=== PATIENT | male | born 1965 | race African-American/Black ===

== ENCOUNTER 2016-11-01 15:18 | Inpatient (IN) | payer SELFPAY ==
[2016-11-01] VITALS (18 sets, daily range): BP systolic 75–119; BP diastolic 34–104
[~2016-11-01] VITALS: Ht 182.9 cm; Wt 84.1 kg
[2016-11-01] MEDS ORDERED: ROCURONIUM BROMIDE 50 MG/5 ML IV ONE (15:21)
[2016-11-01] MEDS ORDERED: ETOMIDATE 2 MG/ML VIAL IV ONE (15:21)
[2016-11-01 15:51] LABS: BASOPHILS # (AUTO) 0.1 /CMM (0.0-0.2); BASOPHILS % (AUTO) 0.8 % (0.0-2.0); HEMATOCRIT 45 % (39-51); HEMOGLOBIN 14.9 g/dL (13.5-17.5); LYMPHOCYTES % (AUTO) 24.9 % (20.0-44.0); MEAN CORPUSCULAR HEMOGLOBIN 27 PG (26.0-33.0); MEAN CORPUSCULAR HGB CONC 33 g/dl (31.0-36.0); MEAN CORPUSCULAR VOLUME 81 fL (80-96); MONOCYTES # (AUTO) 1.1 /CMM (0.1-1.30); MONOCYTES % (AUTO) 9.4 % (2.0-12.0); NEUTROPHILS # (AUTO) 7.9 /CMM (1.8-8.9); NEUTROPHILS % (AUTO) 64.9 % (43.0-81.0); PLATELET COUNT (AUTO) 209 /CMM (150-450); RDW COEFFICIENT OF VARIATION 12.6 (11.5-15.0); RED BLOOD CELL COUNT(AUTO) 5.53 MIL/uL (4.5-6.0); WHITE BLOOD COUNT (AUTO) 12.1 K/uL (4.3-11.0)
[2016-11-01 16:00] LABS: CALCIUM, SERUM 9.6 mg/dL (8.5-10.1); CREATININE 5.3 mg/dL (0.6-1.3); POTASSIUM 4.1 mmol/L (3.5-5.1)
[2016-11-01 16:06] LABS: ALBUMIN 4.5 g/dL (3.4-5.0); BILIRUBIN,DIRECT 0.2 mg/dL (0.0-0.2); BILIRUBIN,TOTAL 1.1 mg/dL (0.2-1.0); SALICYLATE 0.2 mg/dL (2.8-20.0); TOTAL PROTEIN, SERUM 8.2 g/dL (6.4-8.2)
[2016-11-01] MEDS: LEVETIRACETAM (500MG) 500 MG in IV NS 0.9% 100 ML IV SCH (16:06)
[2016-11-01 16:10] LABS: INR 1.11 (0.87-1.13); PROTHROMBIN TIME 11.6 SECS (9.5-12.7)
--- NOTE | 2016-11-01 16:12 | NUR ---
PT CAN NOT STAY STILL FOR CT SCANS, DR. PUCKETT IS AWARE. ER WILL CALL WHEN READY.
[2016-11-01 16:23] LABS: TROPONIN I 0.531 ng/mL (0.00-0.056)
--- NOTE | 2016-11-01 16:23 | NUR ---
SUCCESSFUL RSI DONE BY DR. PUCKETT AT BS. RTS AT BS. MEDS GIVEN PER MD ORDER. ET TUBE SIZE 7.5 AT 22 LIP POSITIVE CO2 COLOR CHANGE. VSS. WILL MONITOR.
[2016-11-01] MEDS ORDERED: PROPOFOL 100 ML IV ONE (16:27)
[2016-11-01] MEDS ORDERED: ACETAMINOPHEN 650 MG/SUPP.RECT RC ONE ×2 (16:30→17:02)
[2016-11-01] MEDS ORDERED: IV NS 0.9% 1,000 ML BAG IV ONE (16:30)
--- NOTE | 2016-11-01 16:30 | NUR ---
RECEIVED VERBAL ORDER FROM DR. PUCKETT FOR PROPOFOL. ORDERS CARRIED OUT.
--- NOTE | 2016-11-01 16:30 | NUR ---
VENT SETTINGS- AC-24, TV-500, FI02%-40%, PEEP OF 5
[2016-11-01] MEDS ORDERED: VANCOMYCIN 1 GM in IV D5W 250 ML IV ONE (17:00)
[2016-11-01] MEDS ORDERED: CEFTRIAXONE 1 G in IV D5W 50 ML IV ONE (17:00)
--- NOTE | 2016-11-01 17:00 | NUR ---
PT TAKEN TO CT.
[2016-11-01] MEDS ORDERED: CEFTRIAXONE 1GM BAG (ER ONLY) 50 ML IV ONE (17:09)
[2016-11-01 17:30] LABS: APPEARANCE,URINE Clear (CLEAR); BILIRUBIN,URINE MODERATE (NEGATIVE); BLOOD, URINE Large Ery/uL (NEGATIVE); COLOR,URINE Yellow (YELLOW); KETONES,URINE 15 (NEGATIVE); LEUKOCYTE ESTERASE ,URINE Trace (NEGATIVE); NITRITE, URINE Negative (NEGATIVE); PROTEIN,URINE >=300 mg/dl (NEGATIVE); UGLUCOSE Negative (NEGATIVE); UROBILINOGEN,URINE 0.2 EU/dL (0.2)
[2016-11-01 17:30] LABS: THYROID STIMULATING HORMONE 1.093 uIU/mL (0.358-3.74)
[2016-11-01] MEDS ORDERED: ASPIRIN 300 MG/SUPP.RECT RC ONE (17:30)
[2016-11-01 17:46] LABS: ABG BASE EXCESS -13.4 mmol/L; ABG OXYGEN SATURATION 98.7 % (92.0-98.5); ABG PCO2 44.6 mmHg (35.0-45.0); ABG PH 7.147 (7.350-7.450); ABG PO2 398.1 mmHg (75.0-100.0); AaDO2 270.3 mmHg; COHb 0.3 % (0.5-1.5); MetHb 1.6 % (0.0-1.5); O2Hb 96.8 % (94.0-97.0); PEEP,BG 5 cm H2O; SITE, ABG Right Radial; VENT MODE, BG AC MODE; VT, ABG 500 mL
[2016-11-01] MEDS ORDERED: IV NS 0.9% 1,000 ML IV PRN ×2 (18:06→19:58)
[2016-11-01 18:09] LABS: CREATINE KINASE MB 44.6 ng/mL (0-3.6)
--- NOTE | 2016-11-01 18:18 | NUR ---
ICU 257
[2016-11-01] MEDS ORDERED: ONDANSETRON HCL/PF 4 MG/2 ML VIAL IVP PRN (18:30)
[2016-11-01] MEDS ORDERED: ZOLPIDEM TARTRATE 5 MG TABLET PO PRN (18:30)
[2016-11-01] MEDS ORDERED: Z GUARD REMEDY 2 OZ OINT TP PRN (18:30)
[2016-11-01] MEDS ORDERED: MAGNESIUM HYDROXIDE 30 ML UDC PO PRN (18:30)
[2016-11-01] MEDS ORDERED: HYDROCODONE/APAP 5/325MG 1 EACH TABLET PO PRN (18:30)
[2016-11-01] MEDS ORDERED: MORPHINE SULFATE INJ 2 MG/ML DISP.SYRIN IV PRN (18:30)
[2016-11-01] MEDS ORDERED: ACETAMINOPHEN 325 MG TABLET PO PRN (18:30)
[2016-11-01] MEDS ORDERED: MAG HYDROX/AL HYDROX/SIMETH 30 ML UDC PO PRN (18:30)
[2016-11-01] MEDS ORDERED: D5W IV ONE (18:30)
[2016-11-01] MEDS ORDERED: ACYCLOVIR IV ONE (18:30)
[2016-11-01] MEDS ORDERED: ACYCLOVIR IV 1 GM in IV D5W 250 ML IV ONE (18:34)
--- NOTE | 2016-11-01 18:50 | NUR ---
CALLED FOR REPORT NURSE IS BUSY.
[2016-11-01] MEDS ORDERED: FEE PK DOSING 1 MIN EA MC ONE (19:00)
[2016-11-01 19:21] LABS: RBC,URINE TOO NUMEROUS TO COUN /HPF (0-2)
[2016-11-01 19:22] LABS: BACTERIA,URINE Few /HPF (None Seen); MUCUS,URINE Few /LPF (None Seen); SQUAMOUS EPITHELIAL CELL,UR Rare /HPF (None Seen); URINE AMORPHOUS URATE Moderate /HPF (None Seen)
--- NOTE | 2016-11-01 19:24 | NUR ---
REPORT GIVEN TO MARION BALDERRAMA FOR ICU 257
--- NOTE | 2016-11-01 19:25 | NUR ---
DISTRICT MANAGER: RECEIVED ORALLY INTUBATED PT VIA GURNEY FROM ER WITH PRIMARY DX OF ACUTE RESPIRATORY FAILURE AND SECONDARY DX OF HEAT STROKE. EYES OPEN, UNABLE TO TRACK AND FOLLOW COMMANDS. CURRENTLY RUNNING ACYCLOVIR IV INFUSION AND ON DIPRIVAN AT 30MCG/KG/MIN. ST ON CITRIX ADMINISTRATOR WT HR IN THE 140s. TACHYPNEIC AND WT TEMP. OF 106.6 F. ETT 7.5CM @ 22CM AT THE LIP WT VENT SETTINGS: AC22, TV 500, FI02 40% AND PEEP 5. CONTINUOUS COOLING MEASURES. SAFETY PRECAUTION NOTED. WILL CONTINUE TO MONITOR.
--- NOTE | 2016-11-01 19:34 | NUR ---
TRANSPORTED PT TO ICU BED WITHRT WITHOUT INCIDENT
--- NOTE | 2016-11-01 19:34 | NUR ---
TRANSPORTED CSF FLUID TO LAB
[2016-11-01 19:55] LABS: CSF GLUCOSE 112 mg/dL (40-70); CSF PROTEIN 31.2 mg/dL (15-45)
--- NOTE | 2016-11-01 20:15 | NUR ---
WHEEL BRAIDER: DR. ANAYA CALLED AND ORDERED TO INCREASE ADMITTING FLUID ORDER TO 150ML/HR AND STRICT I&O. NOTED AND CARRIED OUT.
[2016-11-01] MEDS ORDERED: PROPOFOL 100 ML IV PRN ×2 (20:30→22:00)
[2016-11-01] MEDS ORDERED: ENOXAPARIN SODIUM 30 MG/0.3 ML DISP.SYRIN SQ SCH (21:00)
--- NOTE | 2016-11-01 21:45 | NUR ---
PT RCVD ON MECH VENT WITH NOTED SETTINGS AND ORALLY INTUBATED WITH 7.5 ETT SECURE AT 23 CM @ THE LIP LINE . SUCTION SMALL AMOUNT OF WHITE THIN SECRETIONS. VENT ALARM CHECKED AND AUDIBLE . VENT PLUGGED INTO RED OUTLET AMBU BAG AT BEDSIDE. WILL CONTINUE TO MONITOR
[2016-11-01] MEDS: PIPERACILLIN /TAZOBACTAM 2.25 G in IV D5W 50 ML IV SCH (21:58)
[2016-11-01] MEDS ORDERED: HEPARIN INFUSION/D5W 500 ML IV PRN (22:00)
[2016-11-01] MEDS ORDERED: HEPARIN INFUSION/D5W 500 ML IV ONE (22:35)
[2016-11-01 22:50] LABS: ABG BASE EXCESS -9.8 mmol/L; ABG OXYGEN SATURATION 96.6 % (92.0-98.5); ABG PCO2 25.8 mmHg (35.0-45.0); ABG PH 7.349 (7.350-7.450); AaDO2 118.9 mmHg; COHb 0.2 % (0.5-1.5); O2Hb 95.4 % (94.0-97.0); PEEP,BG 5 cm H2O; SITE, ABG Right Femoral; VENT MODE, BG VENT AC; VT, ABG 500 mL
--- NOTE | 2016-11-01 23:35 | NUR ---
SENIOR ENERGY MARKET COORDINATOR: TAKEN DOWN TO CT FOR CT OF HEAD WTO CONTRAST AFTER DR. ROGERS SAW AND EXAMINED PT. DNP ALSO PLACED RT. FEMORAL A. LINE AND TOLERATED PROCEDURE FAIRLY.
[2016-11-01] MEDS ORDERED: HEPARIN SODIUM, PORCINE 5000 UNITS/1 ML VIAL ONE (23:59)
[2016-11-02] VITALS (82 sets, daily range): BP systolic 70–117; BP diastolic 24–74
[2016-11-02] MEDS ORDERED: HEPARIN SODIUM, PORCINE 5000 UNITS/1 ML VIAL IV ONE
[2016-11-02] MEDS: BLOOD SUGAR DIAGNOSTIC 1 EACH STRIP IN SCH ×5 (00:27→23:47)
[2016-11-02] MEDS: DEXTROSE 50%-WATER 50 ML DISP.SYRIN IV PRN ×2 (00:28→05:27)
--- NOTE | 2016-11-02 00:28 | NUR ---
WOOD TURNING LATHE OPERATOR: DR. ROGERS CALLED BACK AND SAID HE READ CT SCAN HIMSELF AND SAID TO DC HEPARIN AT THIS TIME.
--- NOTE | 2016-11-02 01:00 | NUR ---
STREET COMMISSIONER: STOPPED DIPRIVAN AT THIS TIME. PT IS OBTUNDED AND NOT MOVING. WILL HOLD RESTRAINTS AT THIS TIME.
--- NOTE | 2016-11-02 01:10 | NUR ---
GOLD BURNISHER: BLOOD SUGAR RECHECKED AFTER GIVEN D50 WT RESULT OF 70. PAGED DR. ROGERS IF WANT TO CHANGE IVF. TEMP= 100.5. PULSE OXIMETER NOTED WT INACCURATE TRACKING (AEB INCONSISTENT HR BETWEEN PULSE OX AND EKG LEAD HR) D/T CONTINUOUS COOLING MEASURES.
[2016-11-02] MEDS: IV D5/ 0.9% NACL 1,000 ML IV PRN ×2 (01:29→10:29)
--- NOTE | 2016-11-02 01:30 | NUR ---
KEY SANDER: DR. ROGERS MADE AWARE OF TROPONIN NOW AT 106.709 FROM 87.037. ALSO TOLD HIM NO URINE OUTPUT. ALSO RELAYED GLUCOSE=70 AFTER GIVEN D50. DNP WT ORDERS TO CHANGE IVF TO D5NS AT 150ML/HR AND SAID TO RESTART HEPARIN DRIP AND DC LOVENOX (AFTER HE CONFIRMED WT RADIOLOGIST THAT PT HAS NO BLEED FROM CT SCAN).
[2016-11-02] MEDS ORDERED: HEPARIN INFUSION/D5W 500 ML IV PRN (02:00)
--- NOTE | 2016-11-02 02:01 | NUR ---
SERVICE CENTER MANAGER: ONGOING HEPARIN 1150 U/HR, PT NOTED BLEEDING ON PICC LINE. PRESSURE DRESSING CHANGED. OBTAINED PTT ORDER TO ADD FOR 2300 LAB DRAW. TEMP NOW AT 99.0 (RECTAL).
[2016-11-02] MEDS ORDERED: LEVETIRACETAM (500MG) 500 MG/5 ML VIAL IV ONE (04:30)
[2016-11-02] MEDS: LEVETIRACETAM (500MG) 500 MG in IV NS 0.9% 100 ML IV SCH ×2 (04:36→16:54)
--- NOTE | 2016-11-02 04:45 | NUR ---
SOCIAL MEDIA STRATEGIST: FIRST UNIT OF FFP TRANSFUSED WT NO ADVERSE REACTIONS. WILL TRANSFUSE 2 OF 4. STILL OBTUNDED AND STILL OFF DIPRIVAN. WITHDRAWS TO PAINFUL STIMULI.
[2016-11-02 05:04] LABS: ALBUMIN 2.8 g/dL (3.4-5.0); BILIRUBIN,TOTAL 1.8 mg/dL (0.2-1.0); CALCIUM, SERUM 7.9 mg/dL (8.5-10.1); MAGNESIUM 1.3 mg/dL (1.8-2.4); POTASSIUM 3.7 mmol/L (3.5-5.1); TOTAL PROTEIN, SERUM 5.8 g/dL (6.4-8.2)
[2016-11-02 05:07] LABS: THYROID STIMULATING HORMONE 2.362 uIU/mL (0.358-3.74)
[2016-11-02 05:10] LABS: BASOPHILS % (AUTO) 0.1 % (0.0-2.0); EOSINOPHILS % (AUTO) 0.2 % (0.0-6.0); HEMATOCRIT 39 % (39-51); HEMOGLOBIN 13.7 g/dL (13.5-17.5); LYMPHOCYTES # (AUTO) 1.5 /CMM (0.8-4.8); LYMPHOCYTES % (AUTO) 7.6 % (20.0-44.0); MEAN CORPUSCULAR HEMOGLOBIN 27 PG (26.0-33.0); MEAN CORPUSCULAR HGB CONC 35 g/dl (31.0-36.0); MEAN CORPUSCULAR VOLUME 79 fL (80-96); MONOCYTES # (AUTO) 1.9 /CMM (0.1-1.30); MONOCYTES % (AUTO) 9.8 % (2.0-12.0); NEUTROPHILS # (AUTO) 16.3 /CMM (1.8-8.9); NEUTROPHILS % (AUTO) 82.3 % (43.0-81.0); RDW COEFFICIENT OF VARIATION 14.2 (11.5-15.0); RED BLOOD CELL COUNT(AUTO) 5.02 MIL/uL (4.5-6.0); WHITE BLOOD COUNT (AUTO) 19.8 K/uL (4.3-11.0)
[2016-11-02 05:12] LABS: PLATELET COUNT (AUTO) 48 /CMM (150-450)
[2016-11-02] MEDS: PIPERACILLIN /TAZOBACTAM 2.25 G in IV D5W 50 ML IV SCH ×3 (05:17→21:46)
[2016-11-02 05:32] LABS: CREATININE 7.8 mg/dL (0.6-1.3); PHOSPHORUS 0.9 mg/dL (2.5-4.9)
[2016-11-02 05:44] LABS: CREATINE KINASE MB 149.6 ng/mL (0-3.6)
[2016-11-02 05:55] LABS: BAND % (MANUAL) 28 % (0.0-5.0); EOSINOPHILS % (MANUAL) 1 % (0-4); LYMPHOCYTES % (MANUAL) 6 % (16-48); METAMYELOCYTES % 3 % (0-0); MYELOCYTES % 2 % (0-0); NEUTROPHILS % (MANUAL) 51 (42-76); PROMYELOCYTES % 4 % (0-0); REACTIVE LYMPHOCYTES 5 % (0-0)
[2016-11-02] MEDS ORDERED: Magnesium 1GM/D5W 100ML PREMIX 100 ML IV ONE (05:58)
[2016-11-02] MEDS ORDERED: NEUTRA PHOS 1 POWD.PACKET ONE (05:59)
[2016-11-02] MEDS ORDERED: NEUTRA PHOS 1 POWD.PACKET GT ONE (06:00)
[2016-11-02] MEDS ORDERED: GLUCAGON,HUMAN RECOMBINANT 1 MG/VIAL VIAL IV ONE (06:00)
[2016-11-02] MEDS ORDERED: GLUCAGON,HUMAN RECOMBINANT 1 MG/VIAL VIAL ONE (06:01)
[2016-11-02] MEDS ORDERED: HYDROCORTISONE SOD SUCCINATE 100 MG/2 ML VIAL ONE (06:03)
[2016-11-02] MEDS: HYDROCORTISONE SOD SUCCINATE 100 MG/2 ML VIAL IV SCH ×4 (06:06→16:38)
[2016-11-02] MEDS: Magnesium 1GM/D5W 100ML PREMIX 100 ML IV SCH ×4 (06:07→10:24)
[2016-11-02 06:19] LABS: MONOCYTES % (MANUAL) 0 % (0-11.0)
--- NOTE | 2016-11-02 07:30 | NUR ---
DOOR FRAME BUILDER- Received pt non-verbal, non-responsive, does not track or follow commands. Reflexes absent. Pt orally intubated, 7.5, 22@ the lip. Respirations labored & tachypneic, saturating 100%. Bedside monitor reveals Sinus Tachycardia, HR= 103. Right nare NGT present and clamped. Antonio catheter draining to gravity imelda urine. Low urine output noted. MARITZA picc line running D5NS @ 150 ml/hr. Heparin gtt stopped as cancelled by Dr. Dillon. Safety measures taken: bed locked and in low position, side rails up x2, bed alarm on, will continue to monitor.
--- NOTE | 2016-11-02 07:45 | NUR ---
FENCE BUILDER- Pt noted with bleeding from PICC line and mouth. Dressing changed from PICC line. Pt suctioned orally. Will continue to monitor.
[2016-11-02] MEDS ORDERED: Sodium Phosphate 15 MMOL in IV D5W 250 ML IV ONE ×2 (08:00→13:00)
[2016-11-02] MEDS ORDERED: IV NS 0.9% 500 ML IV PRN (08:00)
[2016-11-02] MEDS: PANTOPRAZOLE 40 MG VIAL IV SCH (08:28)
--- NOTE | 2016-11-02 08:35 | NUR ---
FORESTRY PROFESSOR- Dr. Mike at bedside. Updated md on pt's condition. Md aware pt bleeding from PICC line & mouth. Last FFP has just been completed. Will administer 2 units of Platelets. Obtained order for CBC q6h and Levophed prn. Orders placed. Will continue to monitor.
[2016-11-02] MEDS ORDERED: ENOXAPARIN SODIUM 30 MG/0.3 ML DISP.SYRIN SQ SCH (09:00)
--- NOTE | 2016-11-02 09:00 | NUR ---
COUNTY [place] CITY AUDITOR- Solu-Medrol IV non-administered. Given by previous nurse earlier at 0600. Next dose due at 1300. Will continue to monitor.
[2016-11-02 09:27] LABS: PEEP,BG 5 cm H2O; SITE, ABG A-Line; VENT MODE, BG AC / TOTAL RATE 48; VT, ABG 500 mL
[2016-11-02 09:28] LABS: ABG BASE EXCESS -10.9 mmol/L; ABG OXYGEN SATURATION 97.2 % (92.0-98.5); ABG PCO2 21.3 mmHg (35.0-45.0); ABG PH 7.383 (7.350-7.450); ABG PO2 171.7 mmHg (75.0-100.0); COHb 0.1 % (0.5-1.5); MetHb 1.4 % (0.0-1.5); O2Hb 95.7 % (94.0-97.0)
--- NOTE | 2016-11-02 09:30 | NUR ---
HARD ROCK DRILL OPERATOR- ABGs resulted and given to Dr. Pak. TV increased to 550 by RT. 1100- Fio2 decreased to 30% by RT. Will continue to monitor.
--- NOTE | 2016-11-02 10:00 | NUR ---
AUTOMOTIVE COLLISION REPAIR INSTRUCTOR- Pt had bowel movement. While cleaning pt with assistance from Job RN, pt noted with rectal bleeding. Platelet transfusion still ongoing. Will continue to monitor.
[2016-11-02] MEDS ORDERED: NOREPINEPHRINE 16 MG in IV D5W 500 ML IV PRN (11:00)
--- NOTE | 2016-11-02 11:26 | NUR ---
ICU CRN Jimenez was able to locate pt's cellphone and retrieve messages. A message was sent to pt. from phone number . SW contacted to inquire about the patient and if they knew him. YARELI described patient to Orquidea Lopez who informed SW that pt's name is Alfonso Andrade and he is Alfonso's cousin. YARELI informed Orquidea and his Harmony that pt. is currently in ICU and gave them the nursing station contact number and address to [facility]. YARELI inquired about for pt., however Harmony was unable to provide SW with .
[2016-11-02] MEDS: MORPHINE SULFATE INJ 4 MG/ML DISP.SYRIN IV PRN (12:41)
[2016-11-02 12:44] LABS: HEMATOCRIT 23 % (39-51); HEMOGLOBIN 8.1 g/dL (13.5-17.5); LYMPHOCYTES # (AUTO) 0.5 /CMM (0.8-4.8); MEAN CORPUSCULAR HEMOGLOBIN 28 PG (26.0-33.0); MEAN CORPUSCULAR HGB CONC 36 g/dl (31.0-36.0); MEAN CORPUSCULAR VOLUME 78 fL (80-96); MONOCYTES # (AUTO) 1.6 /CMM (0.1-1.30); MONOCYTES % (AUTO) 9.4 % (2.0-12.0); NEUTROPHILS # (AUTO) 14.9 /CMM (1.8-8.9); NEUTROPHILS % (AUTO) 87.6 % (43.0-81.0); PLATELET COUNT (AUTO) 64 /CMM (150-450); RDW COEFFICIENT OF VARIATION 14.3 (11.5-15.0); RED BLOOD CELL COUNT(AUTO) 2.91 MIL/uL (4.5-6.0)
[2016-11-02] MEDS ORDERED: Sodium Bicarbonate 100 MEQ in IV D5/0.45 NACL 1,000 ML IV PRN (13:00)
[2016-11-02 13:17] LABS: BAND % (MANUAL) 19 % (0.0-5.0); LYMPHOCYTES % (MANUAL) 3 % (16-48); MONOCYTES % (MANUAL) 9 % (0-11.0); NEUTROPHILS % (MANUAL) 69 (42-76)
--- NOTE | 2016-11-02 13:45 | NUR ---
FLEXOGRAPHIC PRESS SET UP OPERATOR- Dr. Mike made of the following lab results: Fibrinogen 75 and Procalcitonin 18.29. H&H dropped to 8.1/23. Also made aware pt's temperature slowly increasing. Currently temp is 99.9. No new orders obtained for lab results. However obtained Tylenol 650 mg rectal suppository q6h prn. Orders placed. Will continue to monitor.
[2016-11-02] MEDS: IV NS 0.9% 250 ML IV PRN ×2 (13:53→20:09)
[2016-11-02] MEDS ORDERED: ACETAMINOPHEN 650 MG/SUPP.RECT RC PRN (14:00)
[2016-11-02] MEDS: Sodium Bicarbonate 50 MEQ in IV D5/0.45 NACL 1,000 ML IV PRN (15:15)
--- NOTE | 2016-11-02 17:00 | NUR ---
RT NOTE: Received patient orally intubated with 7.5 ETT secured at 23 cm inner lipline on mechanical vent. ABG done and reported to Dr. Pak with vent changes ordered. Changes made and charted. Alarms verified and audible. Suctioned and lavaged large amount of bright red blood initially then small-moderate amount of thick dark red and secretions. Bilateral BS noted. Vent plugged into red outlet. Ambu bag at [facility].
[2016-11-02] MEDS: INSULIN REGULAR, HUMAN 100 UNIT/ML 3 ML VIAL SQ PRN ×2 (17:07→23:49)
--- NOTE | 2016-11-02 17:57 | NUR ---
ASSET PROTECTION ASSISTANT- Called [facility] and states they received order for 2 units of Cryo Precipitate (5 units each). special procedure tech states they have to order cryo precipitate from [place] and it will take approximately 4 hours. Will endorse to slot shift manager nurse. Will continue to monitor.
[2016-11-02 17:59] LABS: BASOPHILS % (AUTO) 0.1 % (0.0-2.0); HEMATOCRIT 23 % (39-51); HEMOGLOBIN 7.9 g/dL (13.5-17.5); LYMPHOCYTES # (AUTO) 0.7 /CMM (0.8-4.8); LYMPHOCYTES % (AUTO) 3.6 % (20.0-44.0); MEAN CORPUSCULAR HEMOGLOBIN 27 PG (26.0-33.0); MEAN CORPUSCULAR HGB CONC 35 g/dl (31.0-36.0); MEAN CORPUSCULAR VOLUME 78 fL (80-96); MONOCYTES # (AUTO) 0.8 /CMM (0.1-1.30); MONOCYTES % (AUTO) 4.3 % (2.0-12.0); PLATELET COUNT (AUTO) 52 /CMM (150-450); RDW COEFFICIENT OF VARIATION 14.3 (11.5-15.0); RED BLOOD CELL COUNT(AUTO) 2.89 MIL/uL (4.5-6.0); WHITE BLOOD COUNT (AUTO) 18.5 K/uL (4.3-11.0)
[2016-11-02] MEDS ORDERED: VANCOMYCIN 500 MG in IV D5W 100 ML IV SCH (18:00)
[2016-11-02 18:02] LABS: APPEARANCE,URINE CLOUDY (CLEAR); BILIRUBIN,URINE 1+ (NEGATIVE); BLOOD, URINE 3+ Ery/uL (NEGATIVE); COLOR,URINE DARK YELLO (YELLOW); KETONES,URINE TRACE (NEGATIVE); LEUKOCYTE ESTERASE ,URINE TRACE (NEGATIVE); NITRITE, URINE NEGATIVE (NEGATIVE); PH,URINE 6.5 (5.0-8.0); PROTEIN,URINE 3+ mg/dl (NEGATIVE); UGLUCOSE NEGATIVE (NEGATIVE); UROBILINOGEN,URINE 0.2 EU/dL (0.2)
--- NOTE | 2016-11-02 18:35 | NUR ---
AIRCRAFT LANDING GEAR INSPECTOR- Informed Dr. Mike of 1800 CBC results. H&H= 7.9. Md made aware pt still actively bleeding from nose, mouth, PICC line & rectum. Obtained order for 1 unit PRBC and next H&H check will be at midnight. Order for 1 unit PRBC placed. Will endorse to overnight stocker nurse.
[2016-11-02 18:40] LABS: BAND % (MANUAL) 20 % (0.0-5.0); LYMPHOCYTES % (MANUAL) 8 % (16-48); METAMYELOCYTES % 1 % (0-0); MONOCYTES % (MANUAL) 3 % (0-11.0); MYELOCYTES % 1 % (0-0); NEUTROPHILS % (MANUAL) 67 (42-76)
[2016-11-02 18:46] LABS: BACTERIA,URINE Rare /HPF (None Seen); RBC,URINE 51-80 /HPF (0-2); SQUAMOUS EPITHELIAL CELL,UR Rare /HPF (None Seen)
[2016-11-02 18:59] LABS: CREATININE, URINE 234.1 MG/DL (30.0-125.0); URINE TOTAL PROTEIN 1528.5 mg/dL (0-11.9)
--- NOTE | 2016-11-02 19:30 | NUR ---
PRIME MINISTER: RECEIVED PT ORALLY INTUBATED AND TOLERATING VENT SETTINGS ORDERED. STILL COMATOSE. ON LEVOPHED AT 2MCG/MIN, NA BICARB AT 125ML/HR. NO ACTIVE BLEEDING ON MARITZA PICC AT THIS TIME BUT STILL ACTIVELY BLEEDING WHEN SUCTIONED VIA ETT AND ORALLY. AWAITING FROM BLOOD BANK TO TRANSFUSE 1 UNIT PRBC AND 10 UNITS OF (5 UNITS EACH BACK) CRYO.
[2016-11-02 19:54] LABS: EOSINOPHIL,URINE None Seen
--- NOTE | 2016-11-02 21:40 | NUR ---
MEASURING CLERK: 1 UNIT PRBC TRANSFUSED WT NO ADVERSE REACTIONS. CALLED BLOOD BANK AND SPOKE WT SOC TO FOLLOW-UP WT CRYO AND SAID THEY WILL CALL ONCE READY.
[2016-11-02] MEDS ORDERED: GELATIN SPONGE,ABSORBABLE 1 SPONGE SPONGE TP ONE (22:17)
--- NOTE | 2016-11-02 22:25 | NUR ---
LIAISON INSPECTION LABORATORY ASSISTANT: DR. ERAN ROGERS AT BEDSIDE TO PLACE EMERGENCY HD CATHETER. NOTED ACTIVE BLEEDING ON A. LINE SITE.
[2016-11-02] MEDS ORDERED: DESMOPRESSIN 20 MCG in IV NS 0.9% 50 ML IV ONE (23:00)
[2016-11-02] MEDS ORDERED: DESMOPRESSIN 4 MCG/ML AMPUL ONE (23:07)
[2016-11-03] VITALS (87 sets, daily range): BP systolic 90–118; BP diastolic 32–75
--- NOTE | 2016-11-03 01:05 | NUR ---
STRATEGIC PARTNERSHIP REPRESENTATIVE: 2ND BAG OF CRYOPRECIPITATE TRANSFUSED WITH NO ADVERSE REACTIONS.
[2016-11-03] MEDS: Sodium Bicarbonate 50 MEQ in IV D5/0.45 NACL 1,000 ML IV PRN ×3 (01:37→21:19)
[2016-11-03 01:45] LABS: HEMATOCRIT 24 % (39-51); HEMOGLOBIN 8.5 g/dL (13.5-17.5); LYMPHOCYTES % (AUTO) 4.8 % (20.0-44.0); MEAN CORPUSCULAR HEMOGLOBIN 28 PG (26.0-33.0); MEAN CORPUSCULAR HGB CONC 35 g/dl (31.0-36.0); MEAN CORPUSCULAR VOLUME 79 fL (80-96); MONOCYTES # (AUTO) 0.7 /CMM (0.1-1.30); MONOCYTES % (AUTO) 3.4 % (2.0-12.0); NEUTROPHILS # (AUTO) 18.8 /CMM (1.8-8.9); NEUTROPHILS % (AUTO) 91.8 % (43.0-81.0); RDW COEFFICIENT OF VARIATION 14.6 (11.5-15.0); RED BLOOD CELL COUNT(AUTO) 3.09 MIL/uL (4.5-6.0); WHITE BLOOD COUNT (AUTO) 20.5 K/uL (4.3-11.0)
[2016-11-03 01:57] LABS: PLATELET COUNT (AUTO) 35 /CMM (150-450)
[2016-11-03 02:09] LABS: BAND % (MANUAL) 8 % (0.0-5.0); LYMPHOCYTES % (MANUAL) 3 % (16-48); METAMYELOCYTES % 1 % (0-0); MONOCYTES % (MANUAL) 4 % (0-11.0); MYELOCYTES % 1 % (0-0); NEUTROPHILS % (MANUAL) 83 (42-76)
--- NOTE | 2016-11-03 02:15 | NUR ---
BORING MACHINE FEEDER: DR. ROGERS MADE AWARE OF PLT=35 FROM 52 WT ORDER FOR 2 UNITS OF PLATELET TRANSFUSION. PT STILL NOTED WT BLOOD STOOLS, NASAL AND ORAL BLEEDING. SOC OF BLOOD BANK MADE AWARE AND SAID IT WILL TAKE TIME TO ORDER IT AND WILL CALL US WHEN IT'S READY.
[2016-11-03] MEDS: LEVETIRACETAM (500MG) 500 MG in IV NS 0.9% 100 ML IV SCH ×2 (04:01→16:24)
[2016-11-03] MEDS: PIPERACILLIN /TAZOBACTAM 2.25 G in IV D5W 50 ML IV SCH ×3 (04:47→20:34)
[2016-11-03 05:22] LABS: ALBUMIN 2.3 g/dL (3.4-5.0); BILIRUBIN,TOTAL 6.2 mg/dL (0.2-1.0); CALCIUM, SERUM 7.1 mg/dL (8.5-10.1); MAGNESIUM 2.1 mg/dL (1.8-2.4); PHOSPHORUS 3.7 mg/dL (2.5-4.9); TOTAL PROTEIN, SERUM 4.7 g/dL (6.4-8.2)
[2016-11-03 05:25] LABS: PLATELET COUNT (AUTO) 32 /CMM (150-450)
[2016-11-03 05:26] LABS: INR 2.29 (0.87-1.13); PARTIAL THROMBOPLASTIN TIME 46 SEC (23-34); PROTHROMBIN TIME 25.8 SECS (9.5-12.7)
[2016-11-03 05:27] LABS: FIBRINOGEN ACTIVITY 161 Mg/dL (213-485)
[2016-11-03 05:39] LABS: CREATININE 9.1 mg/dL (0.6-1.3)
[2016-11-03 05:41] LABS: D-DIMER > 35.20 mg/L(FEU (0.17-0.50)
[2016-11-03 05:44] LABS: THYROID STIMULATING HORMONE 0.68 uIU/mL (0.358-3.74)
[2016-11-03 05:45] LABS: TROPONIN I 58.177 ng/mL (0.00-0.056)
[2016-11-03] MEDS: BLOOD SUGAR DIAGNOSTIC 1 EACH STRIP IN SCH ×4 (05:51→23:57)
[2016-11-03] MEDS: INSULIN REGULAR, HUMAN 100 UNIT/ML 3 ML VIAL SQ PRN ×4 (05:55→23:58)
[2016-11-03] MEDS ORDERED: VANCOMYCIN 500 MG in IV D5W 100 ML IV SCH (06:00)
[2016-11-03 06:18] LABS: CREATINE KINASE MB 182.3 ng/mL (0-3.6)
[2016-11-03 06:37] LABS: BASOPHILS % (AUTO) 0.1 % (0.0-2.0); HEMATOCRIT 22 % (39-51); HEMOGLOBIN 7.7 g/dL (13.5-17.5); LYMPHOCYTES # (AUTO) 0.8 /CMM (0.8-4.8); MEAN CORPUSCULAR HEMOGLOBIN 28 PG (26.0-33.0); MEAN CORPUSCULAR HGB CONC 35 g/dl (31.0-36.0); MEAN CORPUSCULAR VOLUME 79 fL (80-96); MONOCYTES # (AUTO) 0.4 /CMM (0.1-1.30); MONOCYTES % (AUTO) 2.3 % (2.0-12.0); NEUTROPHILS # (AUTO) 17.7 /CMM (1.8-8.9); NEUTROPHILS % (AUTO) 93.6 % (43.0-81.0); RDW COEFFICIENT OF VARIATION 14.5 (11.5-15.0); RED BLOOD CELL COUNT(AUTO) 2.79 MIL/uL (4.5-6.0); WHITE BLOOD COUNT (AUTO) 18.9 K/uL (4.3-11.0)
[2016-11-03 06:47] LABS: PLATELET COUNT (AUTO) 23 /CMM (150-450)
--- NOTE | 2016-11-03 07:00 | NUR ---
CHAR FILTER OPERATOR: ONGOING 1ST UNIT PLATELET TRANSFUSION. NO ADVERSE REACTIONS. STILL BLEEDING. WILL ENDORSED TO DAY SHIFT FOR CONTINUITY OF CARE.
--- NOTE | 2016-11-03 07:15 | NUR ---
RN INITIAL NOTES RECEIVED PT INTUBATED, ON MECH VENT WITH FF SETTINGS: AC24, TV550, DF7190%, PEEP+5. PT COMATOSE. NO RESPIRATORY DISTRESS NOTED. PT TACHYCARDIC AND TACHYPNEIC. NGT, LEFT NARE, IN PLACE. MARITZA PICC LINE, LAC AND RFA IV IN PLACE. ON IVF, TOLERATING WELL. RIGHT FEMORAL A LINE INTACT. LEFT FEMORAL HD CATH IN PLACE. DRESSING CLEAN AND DRY. FC IN PLACE. 1ST UNIT OF PLATELET TRANSFUSING. NO BT REACTION NOTED. WILL CLOSELY MONITOR. WILL MONTIOR FOR ACTIVE SIGNS OF BLEEDING. BLE ELEVATED. WILL MONITOR.
[2016-11-03 07:34] LABS: BAND % (MANUAL) 19 % (0.0-5.0); LYMPHOCYTES % (MANUAL) 6 % (16-48); METAMYELOCYTES % 1 % (0-0); MONOCYTES % (MANUAL) 4 % (0-11.0); NEUTROPHILS % (MANUAL) 70 (42-76)
[2016-11-03] MEDS: PANTOPRAZOLE 40 MG VIAL IV SCH (08:47)
[2016-11-03] MEDS: HYDROCORTISONE SOD SUCCINATE 100 MG/2 ML VIAL IV SCH ×3 (08:47→16:24)
[2016-11-03 09:07] LABS: ABG OXYGEN SATURATION 97.3 % (92.0-98.5); ABG PCO2 25.5 mmHg (35.0-45.0); ABG PH 7.428 (7.350-7.450); ABG PO2 142.7 mmHg (75.0-100.0); AaDO2 41.2 mmHg; COHb 0.3 % (0.5-1.5); MetHb 1.6 % (0.0-1.5); O2Hb 95.5 % (94.0-97.0); SITE, ABG Right Radial; VENT MODE, BG AC 24 550 30% +5
[2016-11-03 12:06] LABS: LYMPHOCYTES # (AUTO) 0.3 /CMM (0.8-4.8); LYMPHOCYTES % (AUTO) 1.7 % (20.0-44.0); MEAN CORPUSCULAR HEMOGLOBIN 28 PG (26.0-33.0); MEAN CORPUSCULAR HGB CONC 36 g/dl (31.0-36.0); MEAN CORPUSCULAR VOLUME 78 fL (80-96); MONOCYTES # (AUTO) 0.5 /CMM (0.1-1.30); MONOCYTES % (AUTO) 2.9 % (2.0-12.0); NEUTROPHILS # (AUTO) 17.4 /CMM (1.8-8.9); NEUTROPHILS % (AUTO) 95.4 % (43.0-81.0); PLATELET COUNT (AUTO) 156 /CMM (150-450); RDW COEFFICIENT OF VARIATION 14.1 (11.5-15.0); RED BLOOD CELL COUNT(AUTO) 2.37 MIL/uL (4.5-6.0); WHITE BLOOD COUNT (AUTO) 18.2 K/uL (4.3-11.0)
[2016-11-03 12:20] LABS: HEMATOCRIT 18 % (39-51); HEMOGLOBIN 6.6 g/dL (13.5-17.5)
--- NOTE | 2016-11-03 12:30 | NUR ---
RN NOTES RECEIVED CRITICAL HGB 6.6, HCT 18. STILL WITH ACTIVE BLEEDING NOTED. NO RESPIRATORY DISTRESS NOTED. NO SOB NOTED. GIVEN 1 UNIT OF PRBC AND 2 UNITS OF CRYO LAST NIGHT. 2 UNITS OG PLATELET GIVEN THIS AM. SEEN AND EXAMINED BY DR. RODRI MAYNARD. AWARE OF CURRENT LAB VALUES AND IMAGING STUDIES. PT FOR HD TODAY. NO ORDER PER DR. MAYNARD REGARDING H/H. CALLED DR. ANAYA, LEFT A MESSAGE. AWAITING CALL BACK. Addendum: 11/03/16 at 1248 by RICK RUCKER RN 1232 DR. ANAYA IN THE UNIT. AWARE OF CURRENT LAB VALUES AND IMAGING. H/H 6.6/18, PLATELET 156, FIBRINOGEN 151. MD ORDERED GIVE 1 UNIT OF PRBC. MAY GIVE WITH HD. WILL CLOSELY MONITOR. Addendum: 11/03/16 at 1250 by RICK RUCKER RN DR. ANAYA ALSO AWARE OF TROPONIN 58.177, TRENDING DOWN. CREA KINASE [address]338 AND CK-MB 182.3. DR. PIZARRO ON THE CASE. WILL MONITOR
--- NOTE | 2016-11-03 12:45 | NUR ---
RN NOTES DIALYSIS STARTED. NO RESPIRATORY DISTRESS NOTED. NO SOB NOTED. NO SIGNS OF PAIN NOTED. WILL MONITOR Addendum: 11/03/16 at 1416 by RICK RUCKER RN 1340 1 UNIT OF PRBC TRANSFUSING WITH HD. WILL CLOSELY MONITOR FOR REACTION. LILIA TOLERATING HD WELL.
[2016-11-03 13:21] LABS: BAND % (MANUAL) 17 % (0.0-5.0); LYMPHOCYTES % (MANUAL) 2 % (16-48); MONOCYTES % (MANUAL) 2 % (0-11.0); NEUTROPHILS % (MANUAL) 79 (42-76)
--- NOTE | 2016-11-03 14:53 | NUR ---
RN NOTES DIALYSIS ENDED. REMOVED 1500ML. TOLERATED WELL. NO RESPIRATORY DISTRESS NOTED. NO SOB NOTED. 1 UNIT OF PRBC GIVEN WITH HD. NO BT REACTION NOTED. WILL MONITOR.
[2016-11-03 18:15] LABS: HEMATOCRIT 24 % (39-51); HEMOGLOBIN 8.1 g/dL (13.5-17.5); LYMPHOCYTES # (AUTO) 0.2 /CMM (0.8-4.8); LYMPHOCYTES % (AUTO) 0.9 % (20.0-44.0); MEAN CORPUSCULAR HEMOGLOBIN 28 PG (26.0-33.0); MEAN CORPUSCULAR HGB CONC 35 g/dl (31.0-36.0); MEAN CORPUSCULAR VOLUME 81 fL (80-96); MONOCYTES # (AUTO) 0.4 /CMM (0.1-1.30); MONOCYTES % (AUTO) 2.4 % (2.0-12.0); NEUTROPHILS # (AUTO) 17.3 /CMM (1.8-8.9); NEUTROPHILS % (AUTO) 96.7 % (43.0-81.0); PLATELET COUNT (AUTO) 125 /CMM (150-450); RDW COEFFICIENT OF VARIATION 15.7 (11.5-15.0); RED BLOOD CELL COUNT(AUTO) 2.91 MIL/uL (4.5-6.0); WHITE BLOOD COUNT (AUTO) 17.9 K/uL (4.3-11.0)
[2016-11-03] MEDS ORDERED: PHYTONADIONE INJ 10 MG/1 ML AMPUL SQ ONE (18:30)
--- NOTE | 2016-11-03 18:34 | NUR ---
RN NOTES SEEN AND EXAMINED BY DR. PINO. AWARE OF CURRENT HGB 8.1, HCT 24, PLATELETS 125, PT 25.8, INR 2.29, PTT 46, FIBRINOGEN 161. PT GIVEN 2 UNITS OF PLATELETS AND 1 UNIT OF PRBC TODAY. MD ORDERED FFP 2 UNITS AND VIT K. NOTED AND CARRIED OUT.
--- NOTE | 2016-11-03 18:48 | NUR ---
RN CLOSING NOTES PT REMAINS INTUBATED, ON MECH VENT. NO RESPIRATORY DISTRESS NOTED. NO SIGNS OF PAIN NOTED. IV LINES IN PLACE. TOLERATING IVF WELL. RIGHT FEMORAL A LINE AND LEFT HD CATH IN PLACE. FC IN PLACE. KEPT CLEAN AND DRY. REPOSITIONED Q2. KEPT BLE ELEVATED. CLOSELY MONITORED FOR SIGNS OF ACTIVE BLEEDING. WILL ENDORSE FOR CONTINUITY OF CARE.
--- NOTE | 2016-11-03 20:00 | NUR ---
Received patient comatose in no acute distress.Intubated to vent on AC mode. Vent settings well tolerated sating 97%.Lung sounds with rhonchi.Suction small amount bloody secretions.Oral care done.Left nares NGT intact and clamped. Placement verified.NPO status.All iv's infusing via deb picc line.Right femoral A-line and Left femoral HD cath intact.FC in place no urine output noted at this time. Turned and repositioned.Continue monitoring.
[2016-11-03] MEDS: IV NS 0.9% 250 ML IV PRN (20:03)
--- NOTE | 2016-11-03 21:01 | NUR ---
Patient to receive 2 unit FFP 1st unit started.VS stable.
[2016-11-04] VITALS (62 sets, daily range): BP systolic 99–145; BP diastolic 55–96
[2016-11-04 00:51] LABS: HEMATOCRIT 22 % (39-51); HEMOGLOBIN 7.8 g/dL (13.5-17.5); LYMPHOCYTES # (AUTO) 0.3 /CMM (0.8-4.8); LYMPHOCYTES % (AUTO) 1.8 % (20.0-44.0); MEAN CORPUSCULAR HEMOGLOBIN 28 PG (26.0-33.0); MEAN CORPUSCULAR HGB CONC 35 g/dl (31.0-36.0); MEAN CORPUSCULAR VOLUME 80 fL (80-96); MONOCYTES # (AUTO) 0.5 /CMM (0.1-1.30); NEUTROPHILS # (AUTO) 15.4 /CMM (1.8-8.9); NEUTROPHILS % (AUTO) 95.2 % (43.0-81.0); PLATELET COUNT (AUTO) 98 /CMM (150-450); RDW COEFFICIENT OF VARIATION 15.6 (11.5-15.0); RED BLOOD CELL COUNT(AUTO) 2.76 MIL/uL (4.5-6.0); WHITE BLOOD COUNT (AUTO) 16.2 K/uL (4.3-11.0)
[2016-11-04 01:58] LABS: FIBRINOGEN ACTIVITY 142 Mg/dL (213-485); INR 2.75 (0.87-1.13); PARTIAL THROMBOPLASTIN TIME 40 SEC (23-34); PLATELET COUNT (AUTO) 98 /CMM (150-450); PROTHROMBIN TIME 31.4 SECS (9.5-12.7)
[2016-11-04 02:15] LABS: CREATINE KINASE MB 57.2 ng/mL (0-3.6)
[2016-11-04 02:24] LABS: D-DIMER > 35.20 mg/L(FEU (0.17-0.50)
[2016-11-04] MEDS: LEVETIRACETAM (500MG) 500 MG in IV NS 0.9% 100 ML IV SCH ×2 (04:00→16:42)
[2016-11-04 04:08] LABS: BAND % (MANUAL) 6 % (0.0-5.0); LYMPHOCYTES % (MANUAL) 4 % (16-48); MONOCYTES % (MANUAL) 4 % (0-11.0); NEUTROPHILS % (MANUAL) 86 (42-76)
[2016-11-04 04:47] LABS: HEMATOCRIT 21 % (39-51); HEMOGLOBIN 7.4 g/dL (13.5-17.5); LYMPHOCYTES # (AUTO) 0.2 /CMM (0.8-4.8); LYMPHOCYTES % (AUTO) 1.2 % (20.0-44.0); MEAN CORPUSCULAR HEMOGLOBIN 29 PG (26.0-33.0); MEAN CORPUSCULAR HGB CONC 36 g/dl (31.0-36.0); MEAN CORPUSCULAR VOLUME 80 fL (80-96); MONOCYTES # (AUTO) 0.5 /CMM (0.1-1.30); MONOCYTES % (AUTO) 3.2 % (2.0-12.0); NEUTROPHILS # (AUTO) 14.5 /CMM (1.8-8.9); NEUTROPHILS % (AUTO) 95.6 % (43.0-81.0); PLATELET COUNT (AUTO) 82 /CMM (150-450); RDW COEFFICIENT OF VARIATION 15.8 (11.5-15.0); RED BLOOD CELL COUNT(AUTO) 2.59 MIL/uL (4.5-6.0); WHITE BLOOD COUNT (AUTO) 15.2 K/uL (4.3-11.0)
[2016-11-04 05:04] LABS: CALCIUM, SERUM 6.9 mg/dL (8.5-10.1); POTASSIUM 4.5 mmol/L (3.5-5.1)
[2016-11-04] MEDS: PIPERACILLIN /TAZOBACTAM 2.25 G in IV D5W 50 ML IV SCH ×3 (05:11→21:03)
[2016-11-04 05:16] LABS: CREATININE 8.3 mg/dL (0.6-1.3)
[2016-11-04] MEDS ORDERED: VANCOMYCIN 500 MG in IV D5W 100 ML IV SCH ×2 (06:00→09:00)
[2016-11-04] MEDS: BLOOD SUGAR DIAGNOSTIC 1 EACH STRIP IN SCH ×3 (06:26→17:19)
[2016-11-04] MEDS: INSULIN REGULAR, HUMAN 100 UNIT/ML 3 ML VIAL SQ PRN (06:27)
[2016-11-04] MEDS ORDERED: IV NS 0.9% 500 ML IV ONE (06:30)
--- NOTE | 2016-11-04 07:34 | NUR ---
Patient received 2 units FFP and 1 unit PRBC without untoward reaction. Still to receive 1 unit PRBC.Report given to AM shift RN.Patient status unchanged.
[2016-11-04] MEDS: Sodium Bicarbonate 50 MEQ in IV D5/0.45 NACL 1,000 ML IV PRN (07:50)
--- NOTE | 2016-11-04 08:00 | NUR ---
ICU/RN: PT RECEIVED, GAG REFLEX PRESENT, OPENS EYES, UNABLE TO FOLLOW COMMANDS, NO FACIAL GRIMACING OR DISTRESS NOTED. FC DRAINING TO GRAVITY WITH MINIMAL TEA COLORED URINE OUTPUT. WILL CONT TO MONITOR PT.
[2016-11-04] MEDS: PANTOPRAZOLE 40 MG VIAL IV SCH (08:38)
[2016-11-04] MEDS: HYDROCORTISONE SOD SUCCINATE 100 MG/2 ML VIAL IV SCH ×3 (08:39→16:41)
--- NOTE | 2016-11-04 10:00 | NUR ---
ICU/RN: 2ND UNIT PRBC TRANSFUSED WITH HD; TOLERATED WELL. 2.5 LITERS OUT. REMAINS HEMODYNAMICALLY STABLE AND AFEBRILE. WILL CONT TO MONITOR PT.
--- NOTE | 2016-11-04 12:06 | NUR ---
ICU/RN: DR PINO UPDATED ON PT STATUS. 1200 FIBRINOGEN LEVEL PENDING; STANDING ORDERS OBTAINED TO TRANSFUSE 10 UNITS OF CRYOPRECIPITATE IF FIBRINOGEN <150
[2016-11-04 12:12] LABS: HEMATOCRIT 29 % (39-51); LYMPHOCYTES # (AUTO) 0.2 /CMM (0.8-4.8); MEAN CORPUSCULAR HEMOGLOBIN 29 PG (26.0-33.0); MEAN CORPUSCULAR HGB CONC 35 g/dl (31.0-36.0); MEAN CORPUSCULAR VOLUME 82 fL (80-96); MONOCYTES # (AUTO) 0.6 /CMM (0.1-1.30); MONOCYTES % (AUTO) 3.9 % (2.0-12.0); NEUTROPHILS # (AUTO) 15.3 /CMM (1.8-8.9); NEUTROPHILS % (AUTO) 95.1 % (43.0-81.0); PLATELET COUNT (AUTO) 64 /CMM (150-450); RDW COEFFICIENT OF VARIATION 16.3 (11.5-15.0); RED BLOOD CELL COUNT(AUTO) 3.46 MIL/uL (4.5-6.0); WHITE BLOOD COUNT (AUTO) 16.1 K/uL (4.3-11.0)
[2016-11-04 12:53] LABS: BAND % (MANUAL) 6 % (0.0-5.0); LYMPHOCYTES % (MANUAL) 2 % (16-48); MONOCYTES % (MANUAL) 4 % (0-11.0); NEUTROPHILS % (MANUAL) 88 (42-76)
--- NOTE | 2016-11-04 14:00 | NUR ---
ICU/RN: BED BATH AND WOUND CARE RENDERED, PT TOLERATED WELL. A-LINE DRESSING CHANGED, CALIBRATED AND ZEROED PER PROTOCOL.
[2016-11-04 15:09] LABS: PTH, INTACT 685 pg/mL (15-65)
--- NOTE | 2016-11-04 16:47 | NUR ---
ICU/RN: CALLED BLOOD BANK TO F/U CRYOPRECIPITATE, PER ED, CLS, AWAITING DELIVERY FROM [facility]. WILL CALL ONCE UNITS ARE AVAILABLE.
[2016-11-04] MEDS: DEXTROSE 50%-WATER 50 ML DISP.SYRIN IV PRN (17:24)
--- NOTE | 2016-11-04 19:15 | NUR ---
ICU/RN: PT IN BED, TOLERATING CURRENT VENT SETTINGS, REMAINS HEMODYNAMICALLY STABLE, CALLED BLOOD BANK TO F/U CRYOPRECIPITATE, PER CLS STILL WAITING FOR DELIVERY FROM [facility]. CARE ENDORSED TO PM RN FOR YORDY.
--- NOTE | 2016-11-04 20:00 | NUR ---
Received patient resting in acute distress.Tolerating vent settings.Oral care done and secretions suctioned.SR with LBBB.Hemodynamically stable.NPO and ngt clamped.FC in place no urine output at this time.Turned and repositioned.Continue monitoring.Still awaiting CRYO from BLOOD BANK.
[2016-11-04] MEDS: IV NS 0.9% 250 ML IV PRN (21:43)
--- NOTE | 2016-11-04 23:40 | NUR ---
Cryoprecipitate 10 units transfused without untoward reaction.VS stable.
[2016-11-05] VITALS (47 sets, daily range): BP systolic 99–157; BP diastolic 69–94
[2016-11-05] MEDS ORDERED: DEXTROSE 50%-WATER 50 ML DISP.SYRIN ONE (01:17)
--- NOTE | 2016-11-05 01:20 | NUR ---
Patient blood sugar 38.Repeated BS 41.DNP,Damon Barrett nofied with order.D50 1 AMP IV given.
[2016-11-05] MEDS ORDERED: DEXTROSE 50%-WATER 50 ML DISP.SYRIN IVP ONE ×2 (01:30→06:30)
[2016-11-05] MEDS: BLOOD SUGAR DIAGNOSTIC 1 EACH STRIP IN SCH ×4 (01:31→17:49)
[2016-11-05] MEDS: IV D5/ 0.9% NACL 1,000 ML IV PRN ×2 (02:26→16:10)
[2016-11-05] MEDS: LEVETIRACETAM (500MG) 500 MG in IV NS 0.9% 100 ML IV SCH ×2 (04:45→16:08)
[2016-11-05] MEDS: PIPERACILLIN /TAZOBACTAM 2.25 G in IV D5W 50 ML IV SCH ×3 (05:18→20:32)
[2016-11-05 05:24] LABS: CALCIUM, SERUM 7.1 mg/dL (8.5-10.1); POTASSIUM 5.2 mmol/L (3.5-5.1)
[2016-11-05] MEDS ORDERED: IV NS 0.9% 500 ML BAG IV ONE ×2 (05:30→06:30)
[2016-11-05 06:06] LABS: CREATININE 8.3 mg/dL (0.6-1.3)
--- NOTE | 2016-11-05 06:28 | NUR ---
Patient BS 59.D50 1 amp ivp given.Latest blood sugar 120.Patient in no acute distress. Right femoral A-line with bleeding.Dressing changed and pressure dressing applied.Continue monitoring.
[2016-11-05 06:37] LABS: CREATINE KINASE MB 13.1 ng/mL (0-3.6)
[2016-11-05 07:52] LABS: HEMATOCRIT 31 % (39-51); HEMOGLOBIN 10.6 g/dL (13.5-17.5); LYMPHOCYTES # (AUTO) 0.4 /CMM (0.8-4.8); LYMPHOCYTES % (AUTO) 2.1 % (20.0-44.0); MEAN CORPUSCULAR HEMOGLOBIN 29 PG (26.0-33.0); MEAN CORPUSCULAR HGB CONC 35 g/dl (31.0-36.0); MEAN CORPUSCULAR VOLUME 83 fL (80-96); MONOCYTES # (AUTO) 1.6 /CMM (0.1-1.30); MONOCYTES % (AUTO) 8.8 % (2.0-12.0); NEUTROPHILS # (AUTO) 16.1 /CMM (1.8-8.9); NEUTROPHILS % (AUTO) 89.1 % (43.0-81.0); PLATELET COUNT (AUTO) 59 /CMM (150-450); RDW COEFFICIENT OF VARIATION 16.5 (11.5-15.0); RED BLOOD CELL COUNT(AUTO) 3.68 MIL/uL (4.5-6.0); WHITE BLOOD COUNT (AUTO) 18.1 K/uL (4.3-11.0)
[2016-11-05] MEDS: HYDROCORTISONE SOD SUCCINATE 100 MG/2 ML VIAL IV SCH ×4 (08:09→16:08)
[2016-11-05] MEDS: PANTOPRAZOLE 40 MG VIAL IV SCH ×2 (08:09→08:10)
[2016-11-05 08:25] LABS: ABG BASE EXCESS -4.3 mmol/L; ABG OXYGEN SATURATION 97.4 % (92.0-98.5); ABG PCO2 27.4 mmHg (35.0-45.0); ABG PH 7.449 (7.350-7.450); ABG PO2 139.5 mmHg (75.0-100.0); AaDO2 42.2 mmHg; COHb 0.3 % (0.5-1.5); MetHb 0.8 % (0.0-1.5); O2Hb 96.3 % (94.0-97.0); SITE, ABG A-Line
[2016-11-05 09:48] LABS: MONOCYTES % (MANUAL) 11 % (0-11.0); NEUTROPHILS % (MANUAL) 89 (42-76)
[2016-11-05 10:22] LABS: LYMPHOCYTES % (MANUAL) 0 % (16-48)
[2016-11-05] MEDS ORDERED: VANCOMYCIN POST DIALYSIS 500MG IV PRN ×2 (11:30)
--- NOTE | 2016-11-05 13:00 | NUR ---
CAN PATCHER- HD completed, 2.5 L out. Pt tolerated well. Will continue to monitor.
[2016-11-05 18:45] LABS: HEMATOCRIT 30 % (39-51); HEMOGLOBIN 10.5 g/dL (13.5-17.5); LYMPHOCYTES # (AUTO) 0.2 /CMM (0.8-4.8); LYMPHOCYTES % (AUTO) 1.3 % (20.0-44.0); MEAN CORPUSCULAR HEMOGLOBIN 29 PG (26.0-33.0); MEAN CORPUSCULAR HGB CONC 35 g/dl (31.0-36.0); MEAN CORPUSCULAR VOLUME 84 fL (80-96); MONOCYTES # (AUTO) 2.3 /CMM (0.1-1.30); MONOCYTES % (AUTO) 13.1 % (2.0-12.0); NEUTROPHILS # (AUTO) 15.2 /CMM (1.8-8.9); NEUTROPHILS % (AUTO) 85.6 % (43.0-81.0); RDW COEFFICIENT OF VARIATION 16.6 (11.5-15.0); RED BLOOD CELL COUNT(AUTO) 3.61 MIL/uL (4.5-6.0); WHITE BLOOD COUNT (AUTO) 17.7 K/uL (4.3-11.0)
[2016-11-05 18:47] LABS: PLATELET COUNT (AUTO) 44 /CMM (150-450)
--- NOTE | 2016-11-05 20:00 | NUR ---
MOID MIDDLE SCHOOL TEACHER" RECEIVED PT FROM DAY SHIFT, PT IS INTUBATED ON VENT, TOLERATING CURRENT VENT SETTING. RIGHT FEMORAL ARTERIAL LINE OOZING WITH BLOOD, MD AWARE, PRESSURE DRESSING APPLIED, KEEP MONITORING. H/H STABLE CHECKING Q12H. LOW PLATELETS LEVEL 44, EPIC INTERFACE ANALYST DR PINO AWARE, ORDERS TO CHECK FIBRINOGEN LEVEL Q12H, IF ITS LESS THAN 150 GIVE 10 UNITS OF CRYO, AWAITING NUMBERS. TURN AND REPOSITIONED Q2H. HOB ELEVATED. RIGHT UPPER ARM PICC, INTACT INFUSING D5NS AT 75 ML/HR. RIGHT HAND#16 INTACT. LEFT FEMORAL HD CATH, DIALYZED TODAY 2.5 L OUT. V/S STABLE. RECTAL TMP 98.1. KEEP MONITORING...
[2016-11-05 20:36] LABS: BAND % (MANUAL) 1 % (0.0-5.0); LYMPHOCYTES % (MANUAL) 7 % (16-48); MONOCYTES % (MANUAL) 4 % (0-11.0); NEUTROPHILS % (MANUAL) 88 (42-76)
--- NOTE | 2016-11-05 20:42 | NUR ---
CIGARETTE TESTER: FIBRINOGEN LEVEL 141, 10 UNITS OF CRYOPRECIPITATE ORDERED PER DR PINO STANDING ORDERS. AWAITING TO BE READY.
--- NOTE | 2016-11-05 20:43 | NUR ---
FREEZING MACHINE OPERATOR: ARTERIAL LINE TUBING CHANGED PER UNIT POLICY.
[2016-11-06] VITALS (66 sets, daily range): BP systolic 106–168; BP diastolic 47–99
[2016-11-06] MEDS: BLOOD SUGAR DIAGNOSTIC 1 EACH STRIP IN SCH ×5 (00:13→23:54)
--- NOTE | 2016-11-06 02:39 | NUR ---
CREW BOSS: RIGHT FEMORAL ARTERIAL LINE SITE IS BLEEDING, OOZING WITH CLOTS, PRESSURE DRESSING APPLIED. UNABLE TO FIND SANDBAGS IN WHOLE HOSPITAL. KEEP MONITORING...
[2016-11-06] MEDS: LEVETIRACETAM (500MG) 500 MG in IV NS 0.9% 100 ML IV SCH (04:05)
[2016-11-06] MEDS: PIPERACILLIN /TAZOBACTAM 2.25 G in IV D5W 50 ML IV SCH ×3 (04:37→21:23)
[2016-11-06] MEDS ORDERED: IV 10% DEXTROSE 1,000 ML IV PRN (05:00)
[2016-11-06] MEDS ORDERED: Sodium Chloride 154 MEQ in IV 10% DEXTROSE 1,000 ML IV PRN (05:00)
--- NOTE | 2016-11-06 05:00 | NUR ---
JEWELRY POLISHER;' FINGERSTICK BLOOD SUGAR 56, MD ERAN ROGERS NOTIFIED, ORDERS TO START D10 AT 100 ML/HR, ORDERS FAXED TO NURSING ANALYTICS CONSULTANT, AWAITING .....
[2016-11-06 05:20] LABS: CALCIUM, SERUM 7.5 mg/dL (8.5-10.1); POTASSIUM 5.6 mmol/L (3.5-5.1)
[2016-11-06 05:29] LABS: HEMATOCRIT 27 % (39-51); HEMOGLOBIN 9.4 g/dL (13.5-17.5); LYMPHOCYTES # (AUTO) 0.4 /CMM (0.8-4.8); LYMPHOCYTES % (AUTO) 2.6 % (20.0-44.0); MEAN CORPUSCULAR HEMOGLOBIN 30 PG (26.0-33.0); MEAN CORPUSCULAR HGB CONC 35 g/dl (31.0-36.0); MEAN CORPUSCULAR VOLUME 85 fL (80-96); MONOCYTES # (AUTO) 2.8 /CMM (0.1-1.30); MONOCYTES % (AUTO) 17.9 % (2.0-12.0); NEUTROPHILS # (AUTO) 12.5 /CMM (1.8-8.9); NEUTROPHILS % (AUTO) 79.5 % (43.0-81.0); PLATELET COUNT (AUTO) 55 /CMM (150-450); RDW COEFFICIENT OF VARIATION 17.1 (11.5-15.0); RED BLOOD CELL COUNT(AUTO) 3.14 MIL/uL (4.5-6.0); WHITE BLOOD COUNT (AUTO) 15.7 K/uL (4.3-11.0)
[2016-11-06 05:42] LABS: CREATININE 7.6 mg/dL (0.6-1.3)
[2016-11-06 05:56] LABS: BAND % (MANUAL) 1 % (0.0-5.0); LYMPHOCYTES % (MANUAL) 6 % (16-48); MONOCYTES % (MANUAL) 10 % (0-11.0); NEUTROPHILS % (MANUAL) 83 (42-76)
[2016-11-06 05:59] LABS: CREATINE KINASE MB 5.9 ng/mL (0-3.6)
--- NOTE | 2016-11-06 07:53 | NUR ---
Received male intubated pt. Pt 7.5 ETT secure at 23cm @ the lip. Vent is plugged into a red outlet, alarms are set and audible, and BVM is at bedside. Addendum: 11/06/16 at 0755 by VITA DOMÍNGUEZ RT Amended: Links added.
[2016-11-06] MEDS: PANTOPRAZOLE 40 MG VIAL IV SCH (08:15)
[2016-11-06] MEDS: HYDROCORTISONE SOD SUCCINATE 100 MG/2 ML VIAL IV SCH ×3 (08:15→16:17)
--- NOTE | 2016-11-06 09:00 | NUR ---
ICU/RN: DR HÉCTOR AGUILLON; UPDATED ON PT STATUS; LAB AUTUMN KEVIN.
[2016-11-06 10:13] LABS: ABG BASE EXCESS -4.7 mmol/L; ABG OXYGEN SATURATION 96.6 % (92.0-98.5); ABG PCO2 29.1 mmHg (35.0-45.0); ABG PO2 118.7 mmHg (75.0-100.0); COHb 0.5 % (0.5-1.5); MetHb 1.4 % (0.0-1.5); O2Hb 94.8 % (94.0-97.0); PEEP,BG 5 cm H2O; SITE, ABG A-Line; VT, ABG 550 mL
[2016-11-06] MEDS: RENAL NOVASOURCE 1,000 ML BOTTLE GT PRN (10:56)
--- NOTE | 2016-11-06 13:47 | NUR ---
ICU/RN: NOTIFIED OF BLOOD GLUCOSE TREND, BLOOD GLUCOSE 156MG/DL; TOLERATING TUBE FEEDING. PER MD, OK TO DC IV D10 AND START ON ISS FOR TF.
[2016-11-06] MEDS ORDERED: INSULIN REGULAR, HUMAN 100 UNIT/ML 3 ML VIAL SQ PRN (14:00)
[2016-11-06] MEDS ORDERED: DEXTROSE 50%-WATER 50 ML DISP.SYRIN IV PRN (14:00)
--- NOTE | 2016-11-06 14:00 | NUR ---
ICU/RN: PT OFF HD EARLY; PER HD RN SBP DROPPED TO MID 80'S TO LOW 90'S, PT PRESENTLY TACHYCARDIC IN 120'S, RR 30'S. TOTAL OUTPUT OF 1000ML NOTED. WILL MONITOR VS CLOSELY.
--- NOTE | 2016-11-06 15:00 | NUR ---
ICU/RN: A-LINE DRESSING ASSESSED; BLEEDING AT SITE NOTED. SITE CARE RENDERED, APPLIED PRESSURE DRESSING TO AREA; HEMODYNAMIC MONITORING CALIBRATED, FLUSHED PER PROTOCOL. WILL CONT TO MONITOR PT
[2016-11-06] MEDS: LEVETIRACETAM SOL (5 ML) 100 MG/ML UDC GT SCH (16:17)
--- NOTE | 2016-11-06 17:10 | NUR ---
ICU/RN: DR ANAYA NOTIFIED OF BRIGHT RED STOOL X2 , LAST BLOOD GLUCOSE 101 MG/DL. MD ORDERED TO CHECK FOR OBS, MD TO CONSULT WITH GI. SENIOR IT ASSISTANT UPDATED.
--- NOTE | 2016-11-06 19:10 | NUR ---
ICU/RN: PT IN BED, EYES CLOSED, NO DISTRESS NOTED, AFEBRILE, BREATHING EVEN AND UNLABORED. R FEMORAL A-LINE DRESSING C/D/I. CARE ENDORSED TO PM RN FOR YORDY.
--- NOTE | 2016-11-06 19:52 | NUR ---
SOCIAL MEDIA ANALYST: RECEIVED PT , STILL INTUBATED ON VENT, REMAINS ON SAME VENT SETTING, ARTERIAL LINE STILL OOZING WITH BLOOD , REINFORCED PRESSURE DRESSING. MD AWARE. PT HAD BLOODY STOOL REPORTED BY DAY NURSE , FEEDING STOPPED, GI CONSULTED AWAITING. ACCU CHECK Q6H WITH SLIDING SCALE, D10 DC [address] ANAYA ORDERS TO GIVE D50% IF BLOOD SUGAR LESS THAN 60 REPORTED BY DAY NURSE, PT BEEN HAVING EPISODES OF LOW BLOOD SUGAR. KEEP MONITORING . V/S STABLE. ALL NEEDS ATTENDED.
[2016-11-06] MEDS ORDERED: ACETAMINOPHEN 650 MG/20.3 ML UDC NG PRN (22:30)
--- NOTE | 2016-11-06 22:46 | NUR ---
RT NOTE PT RECEIVED MECHANICALLY VENTILATED. 7.5 ETT 23 CM AT LIP. SETTINGS PRESCRIBED. ALARMS SET PER PROTOCOL AND AUDIBLE. VENT PLUGGED IN TO RED OUTLET. AMBU BAG AT BED SIDE. NO DISTRESS NOTED. WILL CONTINUE TO MONITOR. Addendum: 11/06/16 at 2248 by VALERIE KAUR RT Amended: Links added.
[2016-11-06] MEDS: MORPHINE SULFATE INJ 4 MG/ML DISP.SYRIN IV PRN (23:41)
[2016-11-06] MEDS: IV 10% DEXTROSE 1,000 ML IV PRN (23:55)
[2016-11-07] VITALS (111 sets, daily range): BP systolic 72–176; BP diastolic 26–89
[2016-11-07] MEDS ORDERED: Sodium Chloride 154 MEQ in IV 10% DEXTROSE 1,000 ML IV PRN ×2
--- NOTE | 2016-11-07 00:01 | NUR ---
RIGGING SUPERVISOR: PT HAVING EPISODES OF SHALLOW BREATHING, TACHYPNEIC RATE OF 35-42, MORPHINE 2 MG IV PRN GIVEN. FINGERSTICK BLOOD SUGAR 42, ERAN ROGERS AT BEDSIDE NOTIFIED, D50% IV GIVEN, RESTARTED D10 AT 60 ML/HR. KEEP MONITORING....
--- NOTE | 2016-11-07 03:33 | NUR ---
RAIL CAR LOADER; CALL RECEIVED FROM CARRIE BORDEN AT 0600, POSSIBLE NEEDS INTUBATION IF CO2 LEVEL NOT IMPROVED WITH BIPAP. KEEP MONITORING... 2ND ABG RESULTS RELAYED TO ERAN ROGERS EARLIER. Addendum: 11/07/16 at 0334 by ROSE VILLAFUERTE RN WRONG PT CHARTING.
[2016-11-07] MEDS ORDERED: IV NS 0.9% 500 ML BAG IV PRN (04:00)
[2016-11-07] MEDS: BLOOD SUGAR DIAGNOSTIC 1 EACH STRIP IN SCH ×4 (04:47→23:57)
[2016-11-07] MEDS: PIPERACILLIN /TAZOBACTAM 2.25 G in IV D5W 50 ML IV SCH ×3 (04:47→20:39)
[2016-11-07] MEDS: LEVETIRACETAM SOL (5 ML) 100 MG/ML UDC GT SCH ×2 (04:47→15:59)
[2016-11-07 05:12] LABS: BASOPHILS % (AUTO) 0.1 % (0.0-2.0); HEMOGLOBIN 7.1 g/dL (13.5-17.5); LYMPHOCYTES % (AUTO) 5.7 % (20.0-44.0); MEAN CORPUSCULAR HEMOGLOBIN 30 PG (26.0-33.0); MEAN CORPUSCULAR HGB CONC 35 g/dl (31.0-36.0); MEAN CORPUSCULAR VOLUME 85 fL (80-96); MONOCYTES # (AUTO) 4.6 /CMM (0.1-1.30); MONOCYTES % (AUTO) 26.6 % (2.0-12.0); NEUTROPHILS # (AUTO) 11.8 /CMM (1.8-8.9); NEUTROPHILS % (AUTO) 67.6 % (43.0-81.0); PLATELET COUNT (AUTO) 69 /CMM (150-450); RDW COEFFICIENT OF VARIATION 17.3 (11.5-15.0); RED BLOOD CELL COUNT(AUTO) 2.38 MIL/uL (4.5-6.0); WHITE BLOOD COUNT (AUTO) 17.5 K/uL (4.3-11.0)
[2016-11-07 05:21] LABS: HEMATOCRIT 20 % (39-51)
[2016-11-07 05:32] LABS: PROTHROMBIN TIME 43.5 SECS (9.5-12.7)
[2016-11-07 05:33] LABS: INR 3.74 (0.87-1.13)
[2016-11-07 05:37] LABS: ALBUMIN 2.1 g/dL (3.4-5.0); BILIRUBIN,TOTAL 21.8 mg/dL (0.2-1.0); POTASSIUM 5.5 mmol/L (3.5-5.1); TOTAL PROTEIN, SERUM 4.3 g/dL (6.4-8.2)
[2016-11-07 05:40] LABS: CREATININE 8.8 mg/dL (0.6-1.3); D-DIMER 35.2 mg/L(FEU (0.17-0.50)
--- NOTE | 2016-11-07 05:50 | NUR ---
PLATFORM LOADER: FIBRINOGEN LEVEL 26, FOLLOWING STANDING ORDERS FROM DR PINO, CRYO 10 UNITS IF FIBRINOGEN LESS THAN 150, 10 UNITS OF CRYO ORDERED, AWAITING BLOOD BANK TO BE READY....
[2016-11-07 05:53] LABS: CREATINE KINASE MB 12.8 ng/mL (0-3.6)
[2016-11-07 06:04] LABS: BAND % (MANUAL) 4 % (0.0-5.0); LYMPHOCYTES % (MANUAL) 30 % (16-48); METAMYELOCYTES % 11 % (0-0); MONOCYTES % (MANUAL) 3 % (0-11.0); MYELOCYTES % 6 % (0-0); NEUTROPHILS % (MANUAL) 39 (42-76); PROMYELOCYTES % 3 % (0-0); REACTIVE LYMPHOCYTES 4 % (0-0)
[2016-11-07 07:09] LABS: *SPE A/G RATIO 1.3 (0.7-1.7); *SPE ALBUMIN 2.3 g/dL (2.9-4.4); *SPE ALPHA-1-GLOBULIN 0.1 g/dL (0.0-0.4); *SPE ALPHA-2-GLOBULIN 0.3 g/dL (0.4-1.0); *SPE BETA GLOBULIN 0.5 g/dL (0.7-1.3); *SPE GLOBULIN, TOTAL 1.8 g/dL (2.2-3.9); *SPE M-SPIKE Not Observed g/dL (Not Observed); *SPE PROTEIN TOTAL 4.1 g/dL (6.0-8.5); *SPEGAMMA GLOBULIN 0.9 g/dL (0.4-1.8)
--- NOTE | 2016-11-07 07:30 | NUR ---
PIERCER OPERATOR RECEIVED PATIENT OPENS EYES NO TRACKING CONNECTED TO MECHANICAL VENTILAOTRY SUPPORT SATURATING N98%-100% GAGGING NOTED WARM TO TOUCH BUT AFEBRILE WITH ON GOING IVF INFUSING WELL MAINTAINED ON NPO DUE TO POSSIBLE BLOODY STOOL PER RN REPORT RIGHT FEMORAL ARTERIAL LINE SOAKED WITH BLOOD, BLOOD OOZING FROM THE SITE
--- NOTE | 2016-11-07 08:30 | NUR ---
CAP AND HAT PRODUCTION SUPERVISOR FEMORAL ARTERIAL LINE SITE SEEN BY COLLEEN RAIN ORDERED TO PLACED SURGISEAL UNDER PRESSURE DRESSING
[2016-11-07] MEDS: HYDROCORTISONE SOD SUCCINATE 100 MG/2 ML VIAL IV SCH ×3 (08:34→15:59)
[2016-11-07] MEDS: PANTOPRAZOLE 40 MG VIAL IV SCH (08:34)
[2016-11-07] MEDS ORDERED: CELLULOSE,OXIDIZED 1 PKT EACH MC ONE ×2 (09:00→13:00)
[2016-11-07] MEDS ORDERED: PHYTONADIONE INJ 10 MG/1 ML AMPUL SQ ONE (09:30)
--- NOTE | 2016-11-07 09:47 | NUR ---
YARELI attempted to call pt's cousin Orquidea , however there was no answer and no voicemail set up for YARELI to leave a voicemail message. Addendum: 11/07/16 at 1128 by JOSE CRUZ DOWNS YARELI attempted to call pt's cousin Orquidea again, however there was no answer and no voicemail set up for YARELI to leave a voicemail message.
[2016-11-07 09:55] LABS: ABG BASE EXCESS -3.9 mmol/L; ABG OXYGEN SATURATION 96.5 % (92.0-98.5); ABG PCO2 27.2 mmHg (35.0-45.0); ABG PO2 128.6 mmHg (75.0-100.0); AaDO2 53.3 mmHg; COHb 0.9 % (0.5-1.5); MetHb 1.6 % (0.0-1.5); O2Hb 94.1 % (94.0-97.0); PEEP,BG 5 cm H2O; SITE, ABG A-Line; VT, ABG 550 mL
[2016-11-07] MEDS: RENAL NOVASOURCE 1,000 ML BOTTLE GT PRN (11:41)
--- NOTE | 2016-11-07 12:10 | NUR ---
SW contacted ICU GARRYChelsea Moore x [phone] and inquired if she can look into pt's cellphone and get any other numbers that might be on pt's contact list. NAVYA Moore gave SW the following number . SW called the number and received a voicemail. SW left a voicemail message requesting a call back.
--- NOTE | 2016-11-07 14:21 | NUR ---
WOUND CARE CONSULT: PT SEEN FOR PARTIAL THICKNESS OPEN SKIN AREA TO LEFT EAR. RECOMMENDATIONS MADE FOR WOUND CARE AND SKIN PROTECTION. FULL SKIN ASSESSMENT NOT DONE AT THIS TIME DUE TO PT RECEIVING BLOOD. PT HAS MULTIPLE CO-MORBIDITIES INCLUDING VENT-DEPENDENT WITH DIC. WILL SEE PRN. KEVIN IN AGREEMENT WITH PLAN OF CARE. Addendum: 11/07/16 at 1422 by DWAYNE VERAS WNDNU Amended: Links added.
[2016-11-07] MEDS ORDERED: HYDROGEL DRESSING 90 GM TUBE TP PRN (14:30)
[2016-11-07] MEDS: HYDROGEL DRESSING 90 GM TUBE TP SCH (15:51)
[2016-11-07] MEDS: IV 10% DEXTROSE 1,000 ML IV PRN (17:48)
[2016-11-07] MEDS: MORPHINE SULFATE INJ 4 MG/ML DISP.SYRIN IV PRN (19:55)
[2016-11-07 21:11] LABS: BASOPHILS # (AUTO) 0.1 /CMM (0.0-0.2); BASOPHILS % (AUTO) 0.2 % (0.0-2.0); HEMATOCRIT 24 % (39-51); HEMOGLOBIN 8.4 g/dL (13.5-17.5); LYMPHOCYTES # (AUTO) 4.1 /CMM (0.8-4.8); LYMPHOCYTES % (AUTO) 14.8 % (20.0-44.0); MEAN CORPUSCULAR HEMOGLOBIN 31 PG (26.0-33.0); MEAN CORPUSCULAR HGB CONC 35 g/dl (31.0-36.0); MEAN CORPUSCULAR VOLUME 87 fL (80-96); MONOCYTES # (AUTO) 4.6 /CMM (0.1-1.30); MONOCYTES % (AUTO) 16.8 % (2.0-12.0); NEUTROPHILS # (AUTO) 18.6 /CMM (1.8-8.9); NEUTROPHILS % (AUTO) 68.2 % (43.0-81.0); PLATELET COUNT (AUTO) 106 /CMM (150-450); RDW COEFFICIENT OF VARIATION 18.6 (11.5-15.0); RED BLOOD CELL COUNT(AUTO) 2.75 MIL/uL (4.5-6.0); WHITE BLOOD COUNT (AUTO) 27.3 K/uL (4.3-11.0)
[2016-11-07 21:46] LABS: PLATELET COUNT (AUTO) 100 /CMM (150-450)
[2016-11-07 21:47] LABS: INR 2.69 (0.87-1.13); PARTIAL THROMBOPLASTIN TIME 57 SEC (23-34); PROTHROMBIN TIME 30.7 SECS (9.5-12.7)
[2016-11-07 21:49] LABS: FIBRINOGEN ACTIVITY 43 Mg/dL (213-485)
[2016-11-07 21:57] LABS: BAND % (MANUAL) 6 % (0.0-5.0); LYMPHOCYTES % (MANUAL) 14 % (16-48); MONOCYTES % (MANUAL) 29 % (0-11.0); MYELOCYTES % 1 % (0-0); NEUTROPHILS % (MANUAL) 50 (42-76)
[2016-11-07 22:06] LABS: D-DIMER > 35.20 mg/L(FEU (0.17-0.50)
--- NOTE | 2016-11-07 23:03 | NUR ---
SCHEDULE MAKER: 4 UNITS OF FFP GIVEN. PT TOLERATED WELL. NO BLEEDING AT ARTERIAL LINE , SURESEAL APPLIED BY DAY NURSE FOLLOWED BY PRESSURE DRESSING .
[2016-11-08] VITALS (84 sets, daily range): BP systolic 50–168; BP diastolic 17–75
[2016-11-08] MEDS: MORPHINE SULFATE INJ 4 MG/ML DISP.SYRIN IV PRN (02:16)
[2016-11-08] MEDS: LEVETIRACETAM SOL (5 ML) 100 MG/ML UDC GT SCH ×2 (04:36→08:08)
[2016-11-08 05:00] LABS: BASOPHILS # (AUTO) 0.1 /CMM (0.0-0.2); BASOPHILS % (AUTO) 0.3 % (0.0-2.0); LYMPHOCYTES # (AUTO) 4.1 /CMM (0.8-4.8); LYMPHOCYTES % (AUTO) 14.2 % (20.0-44.0); MEAN CORPUSCULAR HEMOGLOBIN 31 PG (26.0-33.0); MEAN CORPUSCULAR HGB CONC 35 g/dl (31.0-36.0); MEAN CORPUSCULAR VOLUME 88 fL (80-96); MONOCYTES % (AUTO) 17.4 % (2.0-12.0); NEUTROPHILS # (AUTO) 19.7 /CMM (1.8-8.9); NEUTROPHILS % (AUTO) 68.1 % (43.0-81.0); PLATELET COUNT (AUTO) 96 /CMM (150-450); RDW COEFFICIENT OF VARIATION 18.8 (11.5-15.0); WHITE BLOOD COUNT (AUTO) 28.9 K/uL (4.3-11.0)
[2016-11-08] MEDS: BLOOD SUGAR DIAGNOSTIC 1 EACH STRIP IN SCH ×3 (05:02→17:37)
[2016-11-08] MEDS: PIPERACILLIN /TAZOBACTAM 2.25 G in IV D5W 50 ML IV SCH ×2 (05:02→12:48)
[2016-11-08 05:11] LABS: CALCIUM, SERUM 6.6 mg/dL (8.5-10.1); MAGNESIUM 3.4 mg/dL (1.8-2.4); POTASSIUM 5.8 mmol/L (3.5-5.1)
[2016-11-08 05:12] LABS: CREATININE 10.9 mg/dL (0.6-1.3)
[2016-11-08 05:29] LABS: RED BLOOD CELL COUNT(AUTO) 1.92 MIL/uL (4.5-6.0)
[2016-11-08 05:30] LABS: HEMOGLOBIN 5.9 g/dL (13.5-17.5)
[2016-11-08 05:31] LABS: HEMATOCRIT 17 % (39-51)
--- NOTE | 2016-11-08 05:47 | NUR ---
FINISHING TUNNEL OPERATOR: PT HAD BLOODY BM, MODERATE AMOUNT, CRITICAL LOW H/H 5.9/, CALLED DR LIMON MADE AWARE ACTIVE BLEEDING, ORDERS TO TRANSFUSE 2 PRBC STAT, AWAITING BLOOD BANK TO MAKE READY
--- NOTE | 2016-11-08 06:02 | NUR ---
SUBSTATION DESIGNER; PT'S BP DROPPING, ARTERIAL LINE BP 80/19, CALLED DR ALMANZA, MADE AWARE CURRENT CONDITION, ORDERS TO GIVE ONE LITRE BOLUS, PRN LEVOPHED, AND 2 PRBC STAT.
--- NOTE | 2016-11-08 06:06 | NUR ---
FINANCE OFFICER: ONE LITRE NS BOLUS ONGOING.....
[2016-11-08] MEDS: NOREPINEPHRINE 16 MG in IV D5W 500 ML IV PRN ×2 (06:08→10:10)
[2016-11-08] MEDS ORDERED: IV NS 0.9% 1,000 ML IV PRN (06:30)
--- NOTE | 2016-11-08 06:52 | NUR ---
LEGAL INVESTIGATOR: BOLUS DONE, PRBC STARTED, BP BEING STABLE, LEVOPHED DECREASED TO 1 MCG/MIN. WILL ENDORSE CARE TO NEXT SHIFT
--- NOTE | 2016-11-08 07:05 | NUR ---
RN INITIAL NOTES RECEIVED PT INTUBATED, ON MECH VENT. HOB ELEVATED. MARITZA PICC IN PLACE. TOLERATING IVF. RIGHT FEMORAL A. LINE AND LEFT FEMORAL HD CATH IN PLACE. OG IN PLACE. GTF ON HOLD. PT'S SBP ON 90S, ON LEVO AT 1MCG/MIN. 1ST UNIT OF PRBC TRANSFUSING. WILL MONITOR FOR BT REACTION. WILL CLOSELY MONITOR FOS ACTIVE SIGNS OF BLEEDING. FC IN PLACE. BLE ELEVATED. WILL CLOSELY MONITOR.
--- NOTE | 2016-11-08 07:19 | NUR ---
CREDENTIALING SPECIALIST; ENDORSED CARE TO NEXT SHIFT.
--- NOTE | 2016-11-08 08:02 | NUR ---
RT PATIENT REC'D ORALLY INTUBATED ON [facility] VENT WITH SETTINGS SET BY . VENT ALARMS CHECKED + AUDIBLE. VENT PLUGGED INTO RED OUTLET. ETT IN GOOD POSITION ACCORDING TO CHEST X-RAY. PATIENT SUCTIONED WITH MOD AMT THIN SECRETIONS. [facility]BU BAG AT [facility]. B/S COARSE. PATIENT IN CRITICAL CONDITION. CONT CURRENT PLAN OF RESP CARE. Addendum: 11/08/16 at 1133 by ERNIE BARBOUR RT Amended: Links added.
[2016-11-08] MEDS: PANTOPRAZOLE 40 MG VIAL IV SCH (08:08)
[2016-11-08] MEDS: HYDROCORTISONE SOD SUCCINATE 100 MG/2 ML VIAL IV SCH ×3 (08:08→16:36)
[2016-11-08] MEDS: HYDROGEL DRESSING 90 GM TUBE TP SCH (08:10)
--- NOTE | 2016-11-08 08:19 | NUR ---
YARELI attempted to call pt's cousin Orquidea again, however there was no answer and no voicemail set up for SW to leave a voicemail message. YARELI contacted Missing Persons and spoke to Detective Milner and gave him a description of the patient and if he has any missing persons filed on pt. Detective Milner informed SW he will pass the description of the patient to his coworker and stated, " we will see what we can find". YARELI left her call back number with Detective Milner.
[2016-11-08 08:26] LABS: ABG BASE EXCESS -16.8 mmol/L; ABG OXYGEN SATURATION 96.6 % (92.0-98.5); ABG PCO2 28.9 mmHg (35.0-45.0); ABG PH 7.168 (7.350-7.450); ABG PO2 135.2 mmHg (75.0-100.0); AaDO2 44.7 mmHg; MetHb 1.6 % (0.0-1.5); O2Hb 92.2 % (94.0-97.0); SITE, ABG A-Line
--- NOTE | 2016-11-08 08:27 | NUR ---
YARELI contacted [facility] and spoke with Officer Vinicio inquiring if they could send a police surgeon to fingerprint pt. for identification. Officer Vinicio informed YARELI that they are unable to do so.
--- NOTE | 2016-11-08 08:57 | NUR ---
RN NOTES ABG RESULT RELAYED TO DR. CASTILLO. AWARE OF CURRENT VENT SETTINGS. PER MD PT NEEDS DIALYSIS WITH [facility]. PT FOR HD TODAY. WILL MONITOR
--- NOTE | 2016-11-08 09:15 | NUR ---
RN NOTES SEEN AND EXAMINED BY MONTRELL RAIN NP. AWARE OF CURRENT LAB VALUES: WBC 28.9, HGB 5.9, HCT 17, PLATELET 96. ON 2ND UNIT OF PRBC. SODIUM 133, POTASSIUM 5.8, BUN 57, CREA 10.9. PT ON LEVO AT 5MCG/MIN. SBP ON 90S. ALSO MADE AWARE OF CXR AND ABG RESULT. PT FOR HD TODAY. INSPECTOR GOLF BALL SPOKE WITH JOSE CRUZ (MOTOR CHECKER) REGARDING PT'S CONDITION AND POSSIBLE RELATIVES THAT CAN BE REACHED TO DISCUSS PLAN OF CARE. ORDERS NOTED AND CARRIED OUT. WILL CLOSELY MONITOR.
[2016-11-08 09:49] LABS: LYMPHOCYTES % (MANUAL) 22 % (16-48); MONOCYTES % (MANUAL) 22 % (0-11.0); NEUTROPHILS % (MANUAL) 56 (42-76)
--- NOTE | 2016-11-08 10:00 | NUR ---
RN NOTES 0995 HD STARTED. WILL TITRATE LEVO ACCORDINGLY. Debra RAIN NP STILL IN THE UNIT, MADE AWARE THAT PT'S SBP ON 60S, LEVO AT 40MCG/MIN. ORDERED DOPAMINE, WILL TITRATE ACCORDINGLY. ALBUMIN GIVEN WITH HD. WILL MONITOR. Addendum: 11/08/16 at 1305 by RICK RUCKER RN 1200 DIALYSIS ENDED. 200ML OUT, 1500ML IN. DR. RODRI MAYNARD AWARE. PT ON LEVO AND DOPAMINE. SBP ON 110S. WILL TITRTAE ACCORDINGLY. WILL CLOSELY MONITOR.
[2016-11-08] MEDS: ALBUMIN 25% 25 GM in PREMIX 1 EA IV PRN ×2 (10:15→10:30)
[2016-11-08] MEDS ORDERED: DOPamine 800 MG in IV D5W 250 ML IV PRN (10:30)
[2016-11-08] MEDS: IV 10% DEXTROSE 1,000 ML IV PRN (11:19)
[2016-11-08 12:21] LABS: BASOPHILS # (AUTO) 0.2 /CMM (0.0-0.2); BASOPHILS % (AUTO) 0.5 % (0.0-2.0); HEMATOCRIT 29 % (39-51); HEMOGLOBIN 9.9 g/dL (13.5-17.5); LYMPHOCYTES # (AUTO) 11.1 /CMM (0.8-4.8); LYMPHOCYTES % (AUTO) 27.9 % (20.0-44.0); MEAN CORPUSCULAR HEMOGLOBIN 30 PG (26.0-33.0); MEAN CORPUSCULAR HGB CONC 35 g/dl (31.0-36.0); MEAN CORPUSCULAR VOLUME 87 fL (80-96); MONOCYTES # (AUTO) 2.5 /CMM (0.1-1.30); MONOCYTES % (AUTO) 6.3 % (2.0-12.0); NEUTROPHILS # (AUTO) 26.1 /CMM (1.8-8.9); NEUTROPHILS % (AUTO) 65.3 % (43.0-81.0); PLATELET COUNT (AUTO) 81 /CMM (150-450); RED BLOOD CELL COUNT(AUTO) 3.27 MIL/uL (4.5-6.0)
[2016-11-08 12:35] LABS: WHITE BLOOD COUNT (AUTO) 39.9 K/uL (4.3-11.0)
[2016-11-08 13:12] LABS: COMPLEMENT C3, SERUM 42 mg/dL (82-167); COMPLEMENT C4, SERUM 9 mg/dL (14-44)
--- NOTE | 2016-11-08 13:58 | NUR ---
RN NOTES CALLED MONTRELL RAIN NP FOR CRITICAL RESULTS: WBC 39.9 AND FIBRINOGEN 39. ON IV ATBS. NO ASE NOTED. WILL TRANSFUSE 10UNITS OF CRYO PER STANDING ORDER. WILL MONITOR.
[2016-11-08] MEDS ORDERED: VANCOMYCIN 1 GM in IV D5W 250 ML IV ONE (14:00)
--- NOTE | 2016-11-08 14:10 | NUR ---
RN NOTES SEEN AND EXAMINED BY DR. HENSON. PT AFEBRILE. ON IV ATBS. NO ASE. REVIEWED CURRENT LAB VALUES AND MEDICATIONS. NO ORDER MADE.
--- NOTE | 2016-11-08 14:30 | NUR ---
RN NOTES SPOKE TO HORACIO (PHARMACIST). CLARIFIED VANCO ORDER 1GM ONCE AT 1400 AND VANCO 500MG POST HD. PER HORACIO, GIVE VANCO 1GM ONLY FOR TODAY.
--- NOTE | 2016-11-08 15:45 | NUR ---
RN NOTES SEEN AND EXAMINED BY DR. PINO. AWARE OF CURRENT LAB VALUES. PT GIVEN 2 UNITS OF PRBC. LATEST HGB 9.9 FROM 5.9, HCT 29 FROM 17, PLATELET 81 FROM 96 STILL WITH ACTIVE BLEEDING NOTED FROM STOOL AND A. LINE. AWAITING BLOOD BANK FOR CRYO 10 UNITS AND MD ORDERED 4 UNITS OF FFP. NOTED AND CARRIED OUT. WILL MONITOR
[2016-11-08 16:03] LABS: BAND % (MANUAL) 6 % (0.0-5.0); LYMPHOCYTES % (MANUAL) 21 % (16-48); MONOCYTES % (MANUAL) 8 % (0-11.0); NEUTROPHILS % (MANUAL) 65 (42-76)
--- NOTE | 2016-11-08 16:11 | NUR ---
YARELI contacted this number that was found in pt's cell phone. Pt's friend's Judith answered stating that her is a friend of the patient and that pt. has a daughter. Pt's friend is looking for patient's daughter to inform him regarding pt's disposition and hospitalization. Judith did not want to share her 's name or daughter's name to YARELI and informed SW she will have her call ICU unit. YARELI informed Judith the urgency in this matter and to have her call ICU at . YARELI contacted pt's RN Connor and informed her regarding aforementioned information and requested her to try to call pt's friend in a few hours if she did not hear from them. Addendum: 11/08/16 at 1618 by JOSE CRUZ DOWNS YARELI also updated COLLEEN Penn regarding aforementioned information.
[2016-11-08] MEDS ORDERED: PANTOPRAZOLE 40 MG VIAL IV SCH (17:00)
--- NOTE | 2016-11-08 18:37 | NUR ---
RN NOTES CRYO STARTED. WILL TRANSFUSE 10UNITS. PT AFEBRILE. WILL MONITOR FOR ANY REACTION.
--- NOTE | 2016-11-08 18:46 | NUR ---
RN CLOSING NOTES PT REMAINS INTUBATED, ON MECH VENT. NGT IN PLACE, CLAMPED. PT ON NPO. MARITZA PICC LINE PLACE. REMAINS IN LEVO, CURRENTLY AT 16MCG/MIN, TITRATED.1ST BAG OF CRYO ONGOING. RIGHT FEMORAL A.LINE AND LEFT FEMORAL HD CATH IN PLACE. FC IN PLACE. KEPT CLEAN AND DRY. UNABLE TO REPOSITIONED Q2, PT UNSTABLE. BLE ELEVATED. KEPT COMFORTABLE. WILL ENDORSE FOR CONTINUITY OF CARE.
--- NOTE | 2016-11-08 19:25 | NUR ---
RN NOTES 1848 PT NOTED JUNCTIONAL, WIDE QRS, PRECEDING TO ASYSTOLE ON THE MONITOR. ORDERED STAT EKG. MONTRELL RAIN NP NOTIFIED. 1849 PT ASYSTOLE. JAG MEDINA ANNOUNCED. CPR AND AMBUBAGGING INITIATED. PT INTUBATED. PLEASE SEE JAG MEDINA RECORD. Addendum: 11/08/16 at 1931 by RICK RUCKER RN 1902 NOTED FAINT CAROTID PULSE, 91. BP 85/50. BLOOD SUGAR CHECKED, 27. GIVEN D50. 1907 LEVO AT 40MCG/MIN, DOPAMINE STARTED AT 10MCG/MIN. ENDORSED TO SHEFALI BALDERRAMA. Addendum: 11/08/16 at 193 by RICK RUCKER RN LUIS (SUPER[employer]) CALLED EUGENIE (FRIEND) #[phone]. PER FRIEND, PT HAS A DAUGHTER BUT DOESN'T KNOW WHERE SHE LIVES NOR HER CELLPHONE #.
[2016-11-08] MEDS ORDERED: PHENYLEPHRINE 40 MG in IV D5W 250 ML IV PRN (19:30)
[2016-11-08] MEDS ORDERED: DEXTROSE 50%-WATER 50 ML DISP.SYRIN IV ONE (19:36)
[2016-11-08] MEDS ORDERED: INSULIN REGULAR, HUMAN 100 UNIT/ML 10 ML VIAL IV ONE (19:36)
[2016-11-08] MEDS ORDERED: EPINEPHRINE (1:10,000) SYRINGE 1 MG/10 ML DISP.SYRIN IVP ONE (19:36)
[2016-11-08] MEDS ORDERED: CALCIUM CHLORIDE 1,000 MG/10 ML DISP.SYRIN IV ONE (19:36)
[2016-11-08] MEDS ORDERED: SODIUM BICARBONATE SYR 50 MEQ/50 ML DISP.SYRIN IV ONE (19:36)
--- NOTE | 2016-11-08 19:49 | NUR ---
ICU/RN- [facility] NOTIFIED, DECLINED PT. W/ CASE NO. [id number].
--- NOTE | 2016-11-08 20:00 | NUR ---
ICU/RN- [facility] NOTIFIED, SPOKE TO MOUNT. PT. IS A CORONERS CASE W/ CASE NO.[id number].
--- NOTE | 2016-11-08 21:30 | NUR ---
PT. POST MORTEM CARE WAS DONE AND BODY TAKEN TO [place] INGRAM PER PROTOCOL.
--- NOTE | 2016-11-08 22:31 | NUR ---
ICU/RN- FRIEND OF PT. TRAORE JUST CALLED, MADE AWARE OF [facility]Guero PASSING, PER SAME. PT. HAS A DAUGHTER AND AN EX . NOT SURE OF THEIR NAMES AND WILL ATTEMPT TO COMMUNICATE WITH THEM.
[2016-11-09] MEDS ORDERED: VANCOMYCIN 500 MG in IV D5W 100 ML IV PRN (06:00)
== END 2016-11-08 19:37 | disposition expired | DRG 870 ==
LOC: ER 15:20 → ICU 18:48
PROVIDERS: ADMIT Family Medicine; ATTEND Family Medicine
PROC: 5A1955Z Respiratory Ventilation, Greater than 96 Consecutive Hours (ICD-10-PCS; principal; 2016-11-01)
PROC: 06HN33Z Insertion of Infusion Device into Left Femoral Vein, Percutaneous Approach (ICD-10-PCS; 2016-11-02)
PROC: B54CZZA Ultrasonography of Left Lower Extremity Veins, Guidance (ICD-10-PCS; 2016-11-02)
PROC: 04HK33Z Insertion of Infusion Device into Right Femoral Artery, Percutaneous Approach (ICD-10-PCS; 2016-11-02)
PROC: 02HV33Z Insertion of Infusion Device into Superior Vena Cava, Percutaneous Approach (ICD-10-PCS; 2016-11-02)
PROC: B44LZZZ Ultrasonography of Femoral Artery (ICD-10-PCS; 2016-11-02)
PROC: 30233K1 Transfusion of Nonautologous Frozen Plasma into Peripheral Vein, Percutaneous Approach (ICD-10-PCS; 2016-11-02)
PROC: 30233N1 Transfusion of Nonautologous Red Blood Cells into Peripheral Vein, Percutaneous Approach (ICD-10-PCS; 2016-11-02)
PROC: 30233M1 Transfusion of Nonautologous Plasma Cryoprecipitate into Peripheral Vein, Percutaneous Approach (ICD-10-PCS; 2016-11-02)
PROC: 30233R1 Transfusion of Nonautologous Platelets into Peripheral Vein, Percutaneous Approach (ICD-10-PCS; 2016-11-02)
PROC: 5A12012 Performance of Cardiac Output, Single, Manual (ICD-10-PCS; 2016-11-08)
DX: A41.9 Sepsis, unspecified organism (principal); I21.4 Non-ST elevation (NSTEMI) myocardial infarction; J96.01 Acute respiratory failure with hypoxia; D65 Disseminated intravascular coagulation [defibrination syndrome]; I63.9 Cerebral infarction, unspecified; G93.41 Metabolic encephalopathy; J69.0 Pneumonitis due to inhalation of food and vomit; K92.2 Gastrointestinal hemorrhage, unspecified; K72.00 Acute and subacute hepatic failure without coma; N17.0 Acute kidney failure with tubular necrosis; R65.21 Severe sepsis with septic shock; E87.2 Acidosis; D62 Acute posthemorrhagic anemia; G93.1 Anoxic brain damage, not elsewhere classified; M62.82 Rhabdomyolysis; D61.818 Other pancytopenia; T67.0XXA Heatstroke and sunstroke, initial encounter; E83.42 Hypomagnesemia; Z79.82 Long term (current) use of aspirin; R82.5 Elevated urine levels of drugs, medicaments and biological substances; E16.2 Hypoglycemia, unspecified; E87.5 Hyperkalemia; E83.39 Other disorders of phosphorus metabolism; R56.9 Unspecified convulsions; R04.0 Epistaxis; Z99.2 Dependence on renal dialysis; X58.XXXA Exposure to other specified factors, initial encounter; Y92.410 Unspecified street and highway as the place of occurrence of the external cause; T38.0X5A Adverse effect of glucocorticoids and synthetic analogues, initial encounter; Y92.009 Unspecified place in unspecified non-institutional (private) residence as the place of occurrence of the external cause
CPT/HCPCS: 31720; 36415; 36569; 36600; 70450-TC; 71010-TC; 72125-TC; 74000-TC; 80048-TC; 80053-TC; 80076-TC; 80202-TC; 80305; 81000-TC; 82140-TC; 82533; 82550-TC; 82553-TC; 82570-TC; 82728-TC; 82746; 82803-TC; 82962-TC; 83540-TC; 83605-TC; 83615-TC; 83735-TC; 83970; 84100-TC; 84155; 84155-TC; 84165; 84300-TC; 84439-TC; 84443-TC; 84484-TC; 85025-TC; 85385-TC; 85396; 85652-TC; 85730-TC; 86694; 86706; 86803; 86850-TC; 86921-TC; 87040-TC; 87070-TC; 87081-TC; 87086-TC; 87340; 89051-TC; 90935-TC; 92950-TC; 93307-TC; 94002-TC; 94003-TC; 94640-TC; 94762-TC; 95819-TC; 99082-TC; A4216; A4606; A6248; A6253; A6402; A6403; A9563; C1750; C1751; C9113; G0480; J0133; J0171; J0696; J1265; J1610; J1644; J1650; J1720; J1815; J1953; J2270; J2370; J2543; J2597; J3370; J3430; J3475; J3490; J7030; J7040; J7042; J7050; J7060; P9012; P9016-BL; P9017-BL; P9034-BL; P9047; Z7610